=== PATIENT | female | born 1960 | race Caucasian/White ===

== ENCOUNTER 2020-11-21 14:46 | Outpatient (CLI) | payer OTHER, SELFPAY ==
--- NOTE | 2020-11-21 15:08 | ECG_ITS ---
Measurements Intervals [place] Rate: 71 P: 77 [place]: 129 QRS: 76 QRSD: 97 T: 61 QT: 416 QTc: 455 Interpretive Statements SINUS RHYTHM INCOMPLETE RIGHT BUNDLE BRANCH BLOCK BORDERLINE ECG Electronically Signed On 11-21-2020 15:18:19 CDT by Garo Taylor D.O.
[2020-11-21 15:33] LABS: Hematocrit 37.5 % (37.0-47.0); Hemoglobin 12.1 g/dL (12.0-15.0); Mean Corpuscular HGB Conc 32.3 g/dl (32-36); Mean Corpuscular Hemoglobin 31.7 pg (26-34); Mean Corpuscular Volume 98.2 fl (80-100); Mean Platelet Volume 9.6 fl (7.4-10.4); Platelet Count Result 394 k/mm3 (150-375); Red Blood Count 3.82 M/mm3 (4.2-5.4); Red Cell Distribution Width 13.4 % (11.5-14.5); White Blood Count 8.5 K/mm3 (4.5-10.0)
[2020-11-21 15:42] LABS: Alanine Aminotransferase 13 U/L (4-35); Albumin Level 4.1 g/dL (3.5-5.1); Alkaline Phosphatase 82 U/L (38-126); Anion Gap 5 mmol/L (8-16); Aspartate Amino Transferase 29 U/L (14-36); Bilirubin,Total 0.4 mg/dL (0.2-1.3); Blood Urea Nitrogen 14 mg/dL (7-17); Calcium 9.5 mg/dL (8.4-10.2); Carbon Dioxide 29 mmol/L (22-30); Chloride 104 mmol/L (98-107); Estimated Glomerular Filt Rate 51; Glucose 90 mg/dL (65-105); Potassium 4.4 mmol/L (3.4-5.0); Sodium 138 mmol/L (137-145)
== END 2020-11-21 14:47 | disposition home or self-care (01) ==
PROVIDERS: PCP Family Medicine; Visit Provider Family Medicine
DX: I10 Essential (primary) hypertension (principal); Z01.818 Encounter for other preprocedural examination; R53.83 Other fatigue; I45.10 Unspecified right bundle-branch block
CPT/HCPCS: 36415; 80053; 85027; 93005

== ENCOUNTER 2021-03-10 19:36 | Emergency (ER) | payer OTHER, SELFPAY ==
--- NOTE | ~2021-03-10 | CT_ITS ---
EXAMINATION: CT abdomen pelvis wo con DATE: 03/10/2021 23:34 INDICATION: Constipation. TECHNIQUE: Computed tomography (CT) of the abdomen and pelvis was performed without intravenous contr ast. Automated exposure control and iterative reconstruction technique were employed. The dose-length product was 394.16 mGy-cm. COMPARISON: CT abdomen 07/19/2010 FINDINGS: The visualized portions of the lung bases demonstrate mild atelectasis. There is a 5 mm nod ule in right lower lobe, likely benign. No pleural effusion. The heart size is normal. No pericardial effusion. The liver demonstrates surface nodularity. The spleen is normal. There are changes of chol ecystectomy. The pancreas, adrenal glands, and kidneys are normal. There is no urolithiasis. There is diverticulosis of the colon without evidence of diverticulitis. The appendix is not visualized. Ther e are no dilated loops of bowel. There are no pathologically enlarged lymph nodes. There is no free i ntraperitoneal fluid. There are changes of anterior and posterior fusion procedures at L5-S1. There i s mild thoracolumbar spondylosis. IMPRESSION: 1. Liver surface nodularity suspicious for cirrhosis. Reviewed, dictated and finalized at location A.
[2021-03-10 19:46] VITALS: BP 174/72; PULSE 94; RESP 16; TEMP 36; O2SAT 96
[2021-03-10 20:20] LABS: Basophils Absolute Auto 0.1 K/mm3 (0.0-0.1); Basophils Percent Auto 0.6 % (0.2-1.2); Eosinophils Absolute Auto 0.1 K/mm3 (0-0.3); Eosinophils Percent Auto 1.5 % (0-4.4); Hemoglobin 12.3 g/dL (12.0-15.0); Immature Granulocyte Absolute 0.02 K/mm3 (0.00-0.031); Immature Granulocyte Percent A 0.2 % (0-0.5); Lymphocytes Absolute Auto 1.89 K/mm3 (0.9-3.2); Mean Corpuscular HGB Conc 33.2 g/dl (32-36); Mean Corpuscular Hemoglobin 31.5 pg (26-34); Mean Corpuscular Volume 94.9 fl (80-100); Mean Platelet Volume 9.6 fl (7.4-10.4); Monocytes Absolute Auto 0.5 K/mm3 (0.1-0.6); Monocytes Percent Auto 5.9 % (2.6-8.5); Neutrophils Absolute Auto 5.6 K/mm3 (1.3-6.7); Neutrophils Percent Auto 68.8 % (45.5-73.1); Platelet Count Result 381 k/mm3 (150-375); White Blood Count 8.2 K/mm3 (4.5-10.0)
[2021-03-10 20:32] LABS: Alanine Aminotransferase 13 U/L (4-35); Alkaline Phosphatase 92 U/L (38-126); Anion Gap 6 mmol/L (8-16); Aspartate Amino Transferase 27 U/L (14-36); Bilirubin,Total 0.5 mg/dL (0.2-1.3); Blood Urea Nitrogen 4 mg/dL (7-17); Calcium 8.7 mg/dL (8.4-10.2); Carbon Dioxide 30 mmol/L (22-30); Chloride 104 mmol/L (98-107); Estimated CRCL calculation 67 ml/min; Estimated Glomerular Filt Rate > 60; Glucose 114 mg/dL (65-110); Lipase 41 U/L (23-300); Potassium 3.1 mmol/L (3.4-5.0); Sodium 140 mmol/L (137-145)
[2021-03-10 21:58] VITALS: BP 164/73; PULSE 72; RESP 17; O2SAT 99
[2021-03-10 22:11] LABS: Add Urine Microscopic? YES; Appearance Urine Clear (Clear); Bacteria Urine Trace /hpf; Bilirubin Urine Negative (Negative); Blood Urine Negative (Negative); Color Urine Yellow (Yellow); Glucose Urine UA Negative (Negative); Ketones Urine Negative (Negative); Leukocyte Esterase Ur Trace LEU/UL (Negative); Mucus Urine Rare /lpf; Nitrate Urine Negative (Negative); Protein Urine Negative (Negative); RBC Urine 0-2 /hpf (0-2); Specific Grav Ur 1.008 (1.001-1.035); Squamous Epithelial Cell Urine Many /hpf (Few); Urobilinogen Urine Negative mg/dL (<2.0); WBC Urine 0-3 /hpf
[2021-03-10 23:00] VITALS: BP 155/72; PULSE 69; RESP 15; O2SAT 99
--- NOTE | 2021-03-10 23:08 | ED.GENADULT ---
HPI - General Adult General Chief complaint: Abdominal Pain <Nkechi Foley MD - Last Filed: 03/10/21 23:21> Stated complaint: Constipation, abd pain, n/v <Nkechi Foley MD - Last Filed: 03/10/21 23:21> Time Seen by Provider: 03/10/21 21:34 <Nkechi Foley MD - Last Filed: 03/10/21 23:21> Source: patient <Nkechi Foley MD - Last Filed: 03/10/21 23:21> Mode of arrival: ambulatory <Nkechi Foley MD - Last Filed: 03/10/21 23:21> Limitations: no limitations <Nkechi Foley MD - Last Filed: 03/10/21 23:21> History of Present Illness HPI narrative: 61-year-old female with past medical history listed below complaining of 2-week history of feeling like her abdomen is obstructed. Patient states she feels like she is unable to have a bowel movement and is backing causing vomiting. No fever, no hematemesis, no dark tarry stool. No previous history of same. Patient states that recently her right lower extremity was also swollen. Patient states she saw her BUILDING CONSTRUCTION ESTIMATOR 2 days ago and nd told her about her symptoms and her BUILDING CONSTRUCTION ESTIMATOR said she had hemorrhoids and prescribed hemorrhoid medicine but she has not yet had a chance to pick that up. Patient states she is unable to eat anything, she has not eaten for 2 weeks. Patient states pain is located in the rectal area worse with having a bowel movement occasional bright red blood separate from the stool. No fever, last vomited earlier today. Patient states she has had abdominal surgeries including abdominoplasty and cholecystectomy. As for her right lower extremity she said she saw her BUILDING CONSTRUCTION ESTIMATOR who thought it might be vascular. No pain, no paresthesias, no pallor. <Nkechi Foley MD - Last Filed: 03/10/21 23:21> Related Data Home medications: Home Medications Medication Instructions Recorded Confirmed aspirin 81 mg tablet,delayed 81 mg PO DAILY 09/19/19 release fluoxetine 20 mg capsule 20 mg PO DAILY 09/19/19 <Nkechi Foley MD - Last Filed: 03/10/21 23:21> Allergies/adverse reactions: Allergies Allergy/AdvReac Type Severity Reaction Status Date / Time oxycodone Allergy Swelling Verified 11/19/20 16:30 of Lip/Tongue/Throat <Nkechi Foley MD - Last Filed: 03/10/21 23:21> Review of Systems Review of Systems: CONSTITUTIONAL: no fever, no weight loss, no confusion EYES: no vision changes, no eye pain ENT: no rhinorrhea, no sore throat, no difficulty swallowing CARDIOVASCULAR: no chest pain, Right leg edema 2 days ago, not today, no palpitations RESPIRATORY: no cough, no shortness of breath, no hemoptysis GASTROINTESTINAL: positive for abdominal pain, no nausea, positive for vomiting GENITOURINARY: no flank pain, no dysuria, no hematuria SKIN: no rash, no jaundice MUSCULOSKELETAL: no back pain, no trauma. NEUROLOGIC: No headache, no dizziness, no focal weakness PSYCHIATRIC: No hallucinations, no suicidal ideation <Nkechi Foley MD - Last Filed: 03/10/21 23:21> [facility], [facility] Past Medical History Medical History: Medical History (Updated 03/10/21 @ 23:49 by Nkechi Foley MD) Anxiety Arm fracture, left Arthritis DDD (degenerative disc disease) Depression Fibromyalgia GERD (gastroesophageal reflux disease) HTN (hypertension) Hx of bronchitis Osteopenia Tuberculosis <Nkechi Foley MD - Last Filed: 03/10/21 23:21> Surgical History Surgical History: Surgical History History of appendectomy History of tubal ligation Hx of cholecystectomy Hx of tonsillectomy <Nkechi Foley MD - Last Filed: 03/10/21 23:21> Family History Family History: Family History Other Family history of alcoholism Family history of gout Hypertension <Nkechi Foley MD - Last Filed: 03/10/21 23:21> Social History Social History: Social History (Re
--- NOTE | 2021-03-10 23:24 | PC.NURSE ---
Pt to CT scan via stretcher at this time.
[2021-03-11 00:32] VITALS: BP 136/86; PULSE 74; RESP 17; O2SAT 100
== END 2021-03-11 00:45 | disposition home or self-care (01) ==
PROVIDERS: Emergency Medicine; Emergency Provider Emergency Medicine; PCP Family Medicine
DX: K64.4 Residual hemorrhoidal skin tags (principal); R10.31 Right lower quadrant pain; I10 Essential (primary) hypertension; K21.9 Gastro-esophageal reflux disease without esophagitis; M79.7 Fibromyalgia; M85.80 Other specified disorders of bone density and structure, unspecified site; M19.90 Unspecified osteoarthritis, unspecified site; F41.9 Anxiety disorder, unspecified; F32.9 Major depressive disorder, single episode, unspecified; Z79.82 Long term (current) use of aspirin; F17.200 Nicotine dependence, unspecified, uncomplicated
CPT/HCPCS: 36415; 74176; 80053; 81001; 83690; 85025; 99284

== ENCOUNTER 2023-07-11 10:41 | Outpatient (CLI) | payer OTHER, SELFPAY ==
--- NOTE | 2023-07-11 | ECG_ITS ---
Measurements Intervals [place] Rate: 86 P: 83 [place]: 130 QRS: 74 QRSD: 93 T: 124 QT: 360 QTc: 431 Interpretive Statements SINUS RHYTHM INCOMPLETE RIGHT BUNDLE BRANCH BLOCK ST DEVIATION AND T-WAVE ABNORMALITY, CONSIDER ISCHEMIA Electronically Signed On 07-11-2023 12:36:26 [employer] EQUIPMENT OPERATOR by Everett Lamb M.D.
== END 2023-07-11 10:42 | disposition home or self-care (01) ==
PROVIDERS: PCP Family Medicine
DX: Z01.818 Encounter for other preprocedural examination (principal); I45.10 Unspecified right bundle-branch block; R93.1 Abnormal findings on diagnostic imaging of heart and coronary circulation
CPT/HCPCS: 93005

== ENCOUNTER 2023-10-21 08:39 | Outpatient (CLI) | payer OTHER, SELFPAY ==
--- NOTE | ~2023-10-21 | DEXA_ITS ---
Bone Density Report Name: YUNIEL GUTIERREZ Age: 63 Sex: Female Ethnicity: White Date of : 1960 Indication: osteopenia; prior fracture; Referring Provider: FOZIA LEDESMA Study: Bone densitometry was performed. Exam Date: October 21, 2023 Accession number: [id number] Bone Density: Region BMD T-score Z-score Classification AP Spine (L1, L2, L3) 0.769 -2.3 -0.8 Osteopenia Femoral Neck (Left) 0.556 -2.6 -1.3 Osteoporosis Total Hip (Left) 0.649 -2.4 -1.4 Osteopenia Femoral Neck (Right) 0.674 -1.6 -0.2 Osteopenia Total Hip (Right) 0.661 -2.3 -1.3 Osteopenia Total Hip Mean 0.655 -2.4 -1.4 Osteopenia World Health Organization criteria for BMD impression classify patients as: Normal (T-score at or above -1.0), Osteopenia (T-score between -1.0 and -2.5), or Osteoporosis (T-score at or below -2.5). 10-year Fracture Risk: FRAX not reported because: Some T-score for Spine Total or Hip Total or Femoral Neck at or below -2.5 Prior hip or vertebral fracture Previous Exams: Region Exam Age BMD T-score BMD Change BMD Change Date g/cm2 vs Baseline vs Previous AP Spine(L1, L2, L3) 10/21/2023 63 0.769 -2.3 -0.011 -0.083* 03/18/2019 59 0.851 -1.5 0.071* 0.010 11/10/2015 55 0.841 -1.6 0.061* 0.061* 08/27/2013 53 0.780 -2.2 Total Hip(Left) 10/21/2023 63 0.649 -2.4 -0.148* -0.108* 03/18/2019 59 0.756 -1.5 -0.040* -0.028* 11/10/2015 55 0.784 -1.3 -0.012 -0.012 08/27/2013 53 0.796 -1.2 Total Hip(Right) 10/21/2023 63 0.661 -2.3 -0.091* -0.042* 03/18/2019 59 0.703 -2.0 -0.049* -0.037* 11/10/2015 55 0.741 -1.7 -0.012 -0.012 08/27/2013 53 0.752 -1.6 *Denotes significance at 95% confidence level, LSC for AP Spine = 0.022 g/cm2, LSC for Total Hip = 0.027 g/cm2 Clinical Information Provided by Patient: Have had a previous hip or vertebral fracture Has had a low trauma fracture Smokes Has used the following medications: Vitamin D, Calcium Patient maximum height was 62.0 Menopause Age: 52 No regular weight bearing exercise Drinks caffeinated beverages Onset of menses at age 18 Number of children 2 Impression: The patient has established osteoporosis, based on the Left Femoral Neck T-score and the existence of a prior fracture. The patient has risk factors, including:
--- NOTE | ~2023-10-21 | MM_ITS ---
EXAMINATION: MM screening mariia BI w clint HISTORY: Screening mammogram TECHNIQUE: Craniocaudal and mediolateral oblique 3-D tomosynthesis images were obtained and synthetic 2-D images were generated. CAD analysis was submitted and interpreted. COMPARISON: 03/18/2019 bilateral screening mammogram BREAST PARENCHYMAL COMPOSITION: The breasts are almost entirely fatty. FINDINGS: There is no evidence of suspicious mass, calcification, or architectural distortion to sugg est malignancy in either breast. There has been no suspicious interval change. IMPRESSION: 1. No mammographic evidence of malignancy. 2. Recommend routine screening mammography in one year. BI-RADS Category 1: Negative Reviewed, dictated and finalized at location A.
== END 2023-10-21 08:40 ==
PROVIDERS: PCP Obstetrics & Gynecology Gynecology; Visit Provider Obstetrics & Gynecology Gynecology
DX: Z12.31 Encounter for screening mammogram for malignant neoplasm of breast (principal); Z78.0 Asymptomatic menopausal state; M85.88 Other specified disorders of bone density and structure, other site
CPT/HCPCS: 77063; 77067; 77080

== ENCOUNTER 2024-12-02 11:48 | Observation (INO) | payer OTHER, SELFPAY ==
[2024-12-02] VITALS (19 sets, daily range): BP systolic 119–211; BP diastolic 51–109; PULSE 87–105; RESP 13–29; TEMP 36.1–37; O2SAT 98–100
--- NOTE | ~2024-12-02 | US_ITS ---
EXAMINATION: US renal BI DATE: 12/03/2024 16:23 INDICATION: renal mass TECHNIQUE: Multiple grayscale and Doppler ultrasound images of the kidneys were obtained. COMPARISON: CTPA with abdomen and pelvis 12/02/2022. FINDINGS: The right kidney measures 9.5 x 5.2 x 4.4 cm. The left kidney measures 9.7 x 4.5 x 4.0 cm. The kidney s demonstrate normal parenchymal echogenicity. There is no hydronephrosis. The bladder is normal. IMPRESSION: Unremarkable renal sonogram findings. Reviewed, dictated and finalized at location K.
--- NOTE | ~2024-12-02 | CT_ITS ---
CTA chest PE abdomen pel Ordering provider: Patricia Carpenter MD History: . shortness of breath, lung cancer . Comparison: March 10, 2021 Technique: CT angiogram chest was performed following timed intravenous injection of contrast. Thin s lice axial images and reformatted coronal images were obtained. Three dimensional reformatted images of the chest were also obtained using a [employer] workstation. Also, CT of the abdomen and pelvis was pe rformed with IV contrast. . Automated exposure control and iterative reconstruction technique were e mployed. The dose-length product was 844.92 mGy-cm. 100 mL Omnipaque 350 was given IV. FINDINGS: CHEST: --PULMONARY ARTERIES: No pulmonary embolus. --VISUALIZED THORACIC INLET: Normal. --MEDIASTINUM: Aorta/coronary arteries: Mild atheromatous disease. Heart/other: The heart is not enlarged. Lymph nodes: No mediastinal or hilar adenopathy. --LUNGS: Nodule seen in the left lower lobe measuring 6.6 mm. No infiltrates or effusions. No pneumothorax. Ca vitary nodule seen in the right upper lobe measuring 1.4 x 2.2 cm..Three-month follow-up CT is advise d. --MUSCULOSKELETAL: Bones: Age appropriate degenerative changes of the spine. Healing fracture in the right second, third , fourth and seventh ribs is noted. Healing fracture is seen in the left fourth rib. Healing fracture in the sternum body is noted. Superficial soft tissues: The superficial soft tissues are normal. ABDOMEN/PELVIS: --MUSCULOSKELETAL: Superficial soft tissues: The superficial soft tissues are normal. Bones: Age appropriate degenerative changes of the spine. Postoperative changes in the lower lumbar a corin. Bilateral hip osteoarthritic changes. --UPPER ABDOMINAL ORGANS: Liver: Fat infiltration. Gallbladder: Status post cholecystectomy. Spleen: Normal. Stomach/duodenum: Sliding hiatus hernia. Pancreas: Atrophic. Adrenals: Normal. Kidneys: Focal area of decreased enhancement in the left kidney upper pole which may be normal but fo llow-up to exclude a mass is advised. --PELVIC ORGANS: The bladder is normal. No bladder stones. --BOWEL AND MESENTERY: Colon: No evidence of diverticulitis or appendicitis. Small Bowel: Normal. No obstruction. Peritoneum/mesentery: No free air or free fluid. No mesenteric lymphadenopathy. --RETROPERITONEUM: Mild atheromatous disease of the abdominal aorta. No retroperitoneal lymphadenop athy. IMPRESSION: CHEST: 1. No pulmonary embolism. 2. No acute cardiopulmonary pathology. 3. Cavitary lesion in the right upper lobe. Further evaluation advised with PET-CT scan or [address] follow-up. 4. Nodule in the left lower lobe. 6 months follow-up CT is advised. ABDOMEN/PELVIS: 1. No evidence of appendicitis, diverticulitis or intestinal obstruction. 2. Sliding hiatus hernia. 3. Fat infiltration of the liver. 4. Possible focal area of decreased enhancement in the left kidney upper pole. Follow-up advised to exclude a mass lesion. Reviewed, dictated and finalized at location A. IMPRESSION: CHEST: 1. No pulmonary embolism. 2. No acute cardiopulmonary pathology. 3. Cavitary lesion in the right upper lobe. Further evaluation advised with PE T-CT scan or [address] follow-up. 4. Nodule in the left lower lobe. 6 months follow-up CT is advised. ABDOMEN/PELVIS: 1. No evidence of appendicitis, diverticulitis or intestinal obstruction. 2. Sliding hiatus hernia. 3. Fat infiltration of the liver. 4. Possible focal area of decreased enhancement in the left kidney upper pole. Follow-up advised to exclude a mass lesion.
--- NOTE | ~2024-12-02 | XR_ITS ---
EXAMINATION: XR chest 2V DATE: 12/02/2024 15:37 INDICATION: Shortness of breath TECHNIQUE: frontal and lateral views of the chest were obtained. COMPARISON: Chest radiograph dated 04/11/[address] dated 12/02/2024 FINDINGS: Mild linear discoid atelectasis at the lingula. No other airspace opacities, pulmonary edema, pleural effusion or pneumothorax. Heart size is normal. Cholecystectomy clips in the right upper quadrant. IMPRESSION: 1. Mild discoid atelectasis at the lingula. No other acute cardiopulmonary disease. Reviewed, dictated and finalized at location A. IMPRESSION: 1. Mild discoid atelectasis at the lingula. No other acute cardiopulmonary dise ase.
--- NOTE | 2024-12-02 12:04 | ECG_ITS ---
Test Date: 2024-12-02 14:15:06 Measurements Intervals [place] Rate: 88 P: 79 [place]: 153 QRS: 61 QRSD: 96 T: 159 QT: 382 QTc: 462 Interpretive Statements SINUS RHYTHM INCOMPLETE RIGHT BUNDLE BRANCH BLOCK ST DEVIATION AND MODERATE T-WAVE ABNORMALITY, CONSIDER ANTEROLAT/INF ISCHEMIA BASELINE ARTIFACT- I, III, AVR, AVL, AVF, V1 ABNORMAL ECG No previous ECG available for comparison Electronically Signed On 12-02-2024 14:17:19 CDT by Garo Taylor D.O.
--- NOTE | 2024-12-02 12:05 | ED_ITS ---
HPI - General Adult General Chief complaint: Unspecified <Patitojose Ace APRN - Last Filed: 12/02/24 21:27> Stated complaint: dyspnea and n/v <Patito Ace APRN - Last Filed: 12/02/24 21:27> Time Seen by Provider: 12/02/24 14:18 <Patito Ace APRN - Last Filed: 12/02/24 21:27> Focused HPI: Patient is a 64-year-old female who presents to the ER with dyspnea, nausea and vomiting. Her daughter reports her symptoms started yesterday but she is unsure what time. Patient daughter reports she has a history of lung cancer and COPD. She also reports patient is experiencing fair amount of pain. Patient reports she is unable to keep down any p.o. intake and is allergic to Zofran. She denies any abdominal pain, back pain, or recent fevers. Pt denies any alcohol or drug use. GENERAL: Ill-appearing, well-nourished, and in acute distress d/t vomiting. HEAD: Normocephalic, atraumatic. CHEST: + crackles, -wheezing, mild respiratory distress. HEART: Regular rate and rhythm.? NEURO: ?Alert and oriented x3. Patient screened in triage and initial orders placed.? ?Additional care and disposition to be based upon?diagnostic testing and treatment. <Patito Ace APRN - Last Filed: 12/02/24 21:27> History of Present Illness HPI narrative: This is a 64 year old female with history of COPD, lung cancer who presents for evaluation of nausea and vomiting. Patient develop nausea and vomiting yesterday. Today she has been unable to keep anything down. Her family reports emesis was bilious and now it is brown. She developed shortness of breath and abdominal pain today with her vomiting. <Patricia Carpenter MD - Last Filed: 12/02/24 21:54> Related Data Home medications: Home Medications ?Medication ?Instructions ?Recorded ?Confirmed ?Last Taken ?Type aspirin 81 mg tablet,delayed 81 mg PO DAILY 09/19/19 11/19/23 Unknown History release (Adult Low Dose Aspirin) fluoxetine 20 mg capsule 20 mg PO DAILY 09/19/19 11/19/23 Unknown History albuterol 90 mcg/actuation aerosol 90 mcg inhalation PRN shortness of 11/18/24 11/18/24 Unknown History inhaler breath budesonide-formoterol HFA 160 2 inh inhalation Q12H 11/18/24 11/18/24 Unknown History mcg-4.5 mcg/actuation aerosol inhaler (Breyna) ipratropium 0.5 mg-albuterol 3 mg 3 ml inhalation QID PRN shortness 11/18/24 11/18/24 Unknown History (2.5 mg base)/3 mL nebulization of breath soln simvastatin 20 mg tablet 40 mg PO DAILY 11/18/24 11/18/24 Unknown History tiotropium bromide 2.5 2 inh inhalation DAILY 11/18/24 11/18/24 Unknown History mcg/actuation mist for inhalation (Spiriva Respimat) <Patito Ace, INVESTMENT COUNSELOR - Last Filed: 12/02/24 21:27> Allergies/adverse reactions: Allergies Allergy/AdvReac Type Severity Reaction Status Date / Time oxycodone Allergy Swelling Verified 12/02/24 12:02 of Lip/Tongue/Throat ondansetron (From Zofran) AdvReac Intermediate Hives Verified 12/02/24 12:02 <Patito Ace, INVESTMENT COUNSELOR - Last Filed: 12/02/24 21:27> [facility] Past Medical History Medical History: Medical History Abnormal liver CT Abnormal CT of the abdomen Anxiety Depression Arm fracture, left Osteopenia Arthritis Fibromyalgia DDD (degenerative disc disease) GERD (gastroesophageal reflux disease) Tuberculosis Hx of bronchitis HTN (hypertension) <Patito Ace, INVESTMENT COUNSELOR - Last Filed: 12/02/24 21:27> Surgical History Surgical History: Surgical History History of tubal ligation Hx of cholecystectomy History of appendectomy Hx of tonsillectomy <Patito Ace INVESTMENT COUNSELOR - Last Filed: 12/02/24 21:27> Family History Family History: Family History Other Family history of alcoholism Family history of gout Hypertension <Patito Yariel Ace APRN - Last Filed: 12/02/24 21:27> Social History Social History: Social History Second hand tobacco smoke exposure: Yes Alcohol intake: never Substance use: never Substance use type: does not use Gender identity (if verbalized by the patient): Female <Patito Yariel Ace APRN - Last Filed: 12/02/24 21:27> Exam 2 Const: General: cooperative, acute distress (actively vomiting) and ill appearing <Patricia Carpenter MD - Last Filed: 12/02/24 21:54> Nutritional Appearance: obese <Patricia Carpenter MD - Last Filed: 12/02/24 21:54> Orientation/consciousness: patient oriented x3 <Patricia Carpenter MD - Last Filed: 12/02/24 21:54> HENMT: Head: normal to inspection <Patricia Carpenter MD - Last Filed: 12/02/24 21:54> Face and sinus: normal facial exam <Patricia Carpenter MD - Last Filed: 12/02/24 21:54> Chest: Chest palpation & inspection: normal inspection of the chest < Patricia Carpenter MD - Last Filed: 12/02/24 21:54> Resp: Effort & Inspection: normal respiratory effort and able to speak in complete sentences <Patricia Carpenter MD - Last Filed: 12/02/24 21:54> Auscultation: clear to auscultation bilaterally <Patricia Carpenter MD - Last Filed: 12/02/24 21:54> Cardio: Jugular venous distension: no JVD <Patricia Carpenter MD - Last Filed: 12/02/24 21:54> Rate: regular rate <Patricia Carpenter MD - Last Filed: 12/02/24 21:54> Rhythm: regular rhythm <Patricia Carpenter MD - Last Filed: 12/02/24 21:54> Peripheral pulses: Peripheral pulses 2+ throughout <Patricia Carpenter MD - Last Filed: 12/02/24 21:54> GI: GI Palp: Yes Soft to palpation, No Tenderness to palpation present (GI) and No Guarding due to palpation present (GI) <Patricia Carpenter MD - Last Filed: 12/02/24 21:54> Auscultation: Hypoactive bowel sounds present <Patricia Carpenter MD - Last Filed: 12/02/24 21:54> Skin: General skin exam: normal color <Patricia Carpenter MD - Last Filed: 12/02/24 21:54> Neuro: General: patient oriented x3 <Patricia Carpenter MD - Last Filed: 12/02/24 21:54> Course Reevaluation(s) Reevaluation #1: Patient reports her abdomen still hurts but her vomiting is under control. I discussed with patient and daughter that labs are consistent with dehydration. I also reviewed that CT shows right upper and left side nodule. Patient reports her oncologist is watching those. She would like to be admitted for observation. <Patricia Carpenter MD - Last Filed: 12/02/24 21:54> Date: 12/02/24 <Patricia Carpenter MD - Last Filed: 12/02/24 21:54> Time: 16:59 <Patricia Carpenter MD - Last Filed: 12/02/24 21:54> Reevaluation #2: Patient is awaiting hospitalist to call back to discussion admission. Care turned over to Dr. Weems until admission to hospitalist. <Patricia Carpenter MD - Last Filed: 12/02/24 21:54> Date: 12/02/24 <Patricia Carpenter MD - Last Filed: 12/02/24 21:54> Time: 18:00 <Patricia Carpenter MD - Last Filed: 12/02/24 21:54> Vital Signs Vital signs: Vital Signs Pulse Rate 87 12/02/24 11:57 Respiratory Rate 20 12/02/24 11:57 Blood Pressure 167/109 H 12/02/24 11:57 Pulse Oximetry 100 12/02/24 11:57 Oxygen Delivery Room Air 12/02/24 11:57 Temperature 98.4 F 12/02/24 20:09 Pulse Rate 96 12/02/24 20:09 Respiratory Rate 17 12/02/24 20:09 Blood Pressure 119/51 L 12/02/24 20:09 Pulse Oximetry 98 12/02/24 20:09 Oxygen Delivery Room Air 12/02/24 11:57 <Patito Ace APRN - Last Filed: 12/02/24 21:27> Vital Signs Pulse Rate 87 12/02/24 11:57 Respiratory Rate 20 12/02/24 11:57 Blood Pressure 167/109 H 12/02/24 11:57 Pulse Oximetry 100 12/02/24 11:57 Oxygen Delivery Room Air 12/02/24 11:57 Temperature 98.4 F 12/02/24 20:09 Pulse Rate 96 12/02/24 20:09 Respiratory Rate 17 12/02/24 20:09 Blood Pressure 119/51 L 12/02/24 20:09 Pulse Oximetry 98 12/02/24 20:09 Oxygen Delivery Room Air 12/02/24 11:57 <Patricia Carpenter MD - Last Filed: 12/02/24 21:54> Vital Signs Pulse Rate 87 12/02/24 11:57 Respiratory Rate 20 12/02/24 11:57 Blood Pressure 167/109 H 12/02/24 11:57 Pulse Oximetry 100 12/02/24 11:57 Oxygen Delivery Room Air 12/02/24 11:57 Temperature 98.4 F 12/02/24 20:09 Pulse Rate 96 12/02/24 20:09 Respiratory Rate 17 12/02/24 20:09 Blood Pressure 119/51 L 12/02/24 20:09 Pulse Oximetry 98 12/02/24 20:09 Oxygen Delivery Room Air 12/02/24 11:57 <Jaylyn Weems MD - Last Filed: 12/02/24 18:59> Medical Decision Making MDM Narrative Medical decision making narrative: Patient seen following discharge. Care assumed at 1800. Patient noted to be hypertensive, when rechecked, improved 187/90. Pt did not take her Losartan today due to n/v, thus IV hydralazine given. Patient imaging reviewed. UA reviewed not consistent with infection. Additional phenergan and morphine ordered for patient. Blood cultures were ordered, and IV fluids continued. Suspect ABBY is pre renal, no infectious source identified at this point. Discussed with hospitalist, admitted in stable condition. <Jaylyn Weems MD - Last Filed: 12/02/24 18:59> Differential Diagnosis Differential Diagnosis: SBO, dehydration, PE, pneumonia. CHF, [place], angina, sepsis, UTI <Patricia Carpenter MD - Last Filed: 12/02/24 21:54> Medical Records Medical records reviewed: Yes I reviewed the external patient's medical records. <Patricia Carpenter MD - Last Filed: 12/02/24 21:54> Vital Signs Vital Signs: Vital Signs Pulse Rate 87 12/02/24 11:57 Respiratory Rate 12/02/24 11:57 Blood Pressure 167/109 H 12/02/24 11:57 Pulse Oximetry 100 12/02/24 11:57 Oxygen Delivery Room Air 12/02/24 11:57 Temperature 98.4 F 12/02/24 20:09 Pulse Rate 96 12/02/24 20:09 Respiratory Rate 17 12/02/24 20:09 Blood Pressure 119/51 L 12/02/24 20:09 Pulse Oximetry 98 12/02/24 20:09 Oxygen Delivery Room Air 12/02/24 11:57 <Patito Ace, INVESTMENT COUNSELOR - Last Filed: 12/02/24 21:27> Vital Signs Pulse Rate 87 12/02/24 11:57 Respiratory Rate 12/02/24 11:57 Blood Pressure 167/109 H 12/02/24 11:57 Pulse Oximetry 100 12/02/24 11:57 Oxygen Delivery Room Air 12/02/24 11:57 Temperature 98.4 F 12/02/24 20:09 Pulse Rate 96 12/02/24 20:09 Respiratory Rate 17 12/02/24 20:09 Blood Pressure 119/51 L 12/02/24 20:09 Pulse Oximetry 98 12/02/24 20:09 Oxygen Delivery Room Air 12/02/24 11:57 <Patricia Carpenter MD - Last Filed: 12/02/24 21:54> Vital Signs Pulse Rate 87 12/02/24 11:57 Respiratory Rate 20 12/02/24 11:57 Blood Pressure 167/109 H 12/02/24 11:57 Pulse Oximetry 100 12/02/24 11:57 Oxygen Delivery Room Air 12/02/24 11:57 Temperature 98.4 F 12/02/24 20:09 Pulse Rate 96 12/02/24 20:09 Respiratory Rate 17 12/02/24 20:09 Blood Pressure 119/51 L 12/02/24 20:09 Pulse Oximetry 98 12/02/24 20:09 Oxygen Delivery Room Air 12/02/24 11:57 <Jaylyn Weems MD - Last Filed: 12/02/24 18:59> Lab Data Lab results reviewed: Yes I reviewed the patient's lab results. <Jaylyn Weems MD - Last Filed: 12/02/24 18:59> Result diagrams: 12/02/24 14:26 12/02/24 14:26 <Patito Ace APRN - Last Filed: 12/02/24 21:27> Labs: Lab Results 12/02/24 12/02/24 12/02/24 Range/Units 14:26 16:49 17:35 WBC 15.9 H (4.5-10.0) K/mm3 RBC 4.41 (4.2-5.4) M/mm3 Hgb 13.5 (12.0-15.0) g/dL Hct 41.7 (37.0-47.0) % MCV 94.6 (80-100) fl MCH 30.6 (26-34) pg MCHC 32.4 (32-36) g/dl RDW 14.4 (11.5-14.5) % Plt Count 439 H (150-375) k/mm3 MPV 9.4 (7.4-10.4) fl Immature Gran % (Auto) 0.5 (0-0.5) % Neut % (Auto) 92.1 H (45.5-73.1) % Lymph % (Auto) 4.5 L (18.3-44.2) % [place] % (Auto) 2.6 (2.6-8.5) % Eos % (Auto) 0.0 (0-4.4) % Baso % (Auto) 0.3 (0.2-1.2) % Lymph # (Auto) 0.71 L (0.9-3.2) K/mm3 [place] # (Auto) 0.4 (0.1-0.6) K/mm3 Eos # (Auto) 0.0 (0-0.3) K/mm3 Baso # (Auto) 0.0 (0.0-0.1) K/mm3 Abs Immat Gran (auto) 0.08 H (0.00-0.031) K/mm3 Absolute Neuts (auto) 14.6 H (1.3-6.7) K/mm3 Absolute Nucleated RBC 0.000 (0.0-0.012) K/mm3 Nucleated RBC % 0.0 (0.0-0.2) % PT 14.0 (11.1-14.7) Seconds INR 1.1 APTT 27.9 (22.3-36.8) Seconds Sodium 140 (137-145) mmol/L Potassium 4.3 (3.4-5.0) mmol/L Chloride 108 H (98-107) mmol/L Carbon Dioxide 14 L (22-30) mmol/L Anion Gap 18 H (4-12) mmol/L BUN 17 D (7-17) mg/dL Creatinine 1.62 H (0.7-1.0) mg/dL Estim Creat Clear Calc 29 ml/min Estimated GFR 32 L (59 - ) Glucose 199 H (65-110) mg/dL Lactic Acid 2.8 H (0.7-2.0) mmol/L Calcium 9.7 (8.4-10.2) mg/dL Magnesium 2.0 (1.6-2.3) mg/dL Total Bilirubin 0.6 (0.2-1.3) mg/dL AST 48 H (14-36) U/L ALT 24 (6-35) U/L Alkaline Phosphatase 166 H (38-126) U/L Troponin I < 0.012 (0.000-0.034) ng/mL NT-Pro-B Natriuret Pep 1900 H (19.9-100) pg/mL Total Protein 9.4 H (6.3-8.2) g/dL Albumin 4.7 (3.5-5.1) g/dL Lipase 60 (23-300) U/L Urine Color Yellow (Yellow) Urine Appearance Clear (Clear) Urine pH 7.0 (5.0-9.0) Ur Specific [place] 1.040 H (1.001-1.035) Urine Protein 3+ H (Negative) mg/dL Urine Glucose (UA) 3+ H (Negative) mg/dL Urine Ketones 2+ H (Negative) mg/dL Ur Blood (Man) 1+ H (Negative) Urine Nitrate Negative (Negative) Urine Bilirubin Negative (Negative) Urine Urobilinogen 0.2 (<2.0) mg/dL Leukocyte Esterase Rfl Negative (Negative) BERYL/UL Urine RBC 0-2 (0-2) /hpf Urine WBC 0-5 (0-3) /hpf Ur Squamous Epith Cells None seen (Few) /hpf Urine Bacteria None seen /hpf Urine Casts 0-2 Urine Opiates Screen Negative (Negative) Urine Methadone Screen Negative (Negative) Ur Barbiturates Screen Negative (Negative) Ur Phencyclidine Scrn Negative (Negative) Ur Amphetamine Screen Negative (Negative) U Benzodiazepines Scrn Negative (Negative) Urine Cocaine Screen Negative (Negative) U Cannabinoids Screen Negative (Negative) <Patito Ace, INVESTMENT COUNSELOR - Last Filed: 12/02/24 21:27> Lab Results 12/02/24 12/02/24 12/02/24 Range/Units 14:26 16:49 17:35 WBC 15.9 H (4.5-10.0) K/mm3 RBC 4.41 (4.2-5.4) M/mm3 Hgb 13.5 (12.0-15.0) g/dL Hct 41.7 (37.0-47.0) % MCV 94.6 (80-100) fl MCH 30.6 (26-34) pg MCHC 32.4 (32-36) g/dl RDW 14.4 (11.5-14.5) % Plt Count 439 H (150-375) k/mm3 MPV 9.4 (7.4-10.4) fl Immature Gran % (Auto) 0.5 (0-0.5) % Neut % (Auto) 92.1 H (45.5-73.1) % Lymph % (Auto) 4.5 L (18.3-44.2) % [place] % (Auto) 2.6 (2.6-8.5) % Eos % (Auto) 0.0 (0-4.4) % Baso % (Auto) 0.3 (0.2-1.2) % Lymph # (Auto) 0.71 L (0.9-3.2) K/mm3 [place] # (Auto) 0.4 (0.1-0.6) K/mm3 Eos # (Auto) 0.0 (0-0.3) K/mm3 Baso # (Auto) 0.0 (0.0-0.1) K/mm3 Abs Immat Gran (auto) 0.08 H (0.00-0.031) K/mm3 Absolute Neuts (auto) 14.6 H (1.3-6.7) K/mm3 Absolute Nucleated RBC 0.000 (0.0-0.012) K/mm3 Nucleated RBC % 0.0 (0.0-0.2) % PT 14.0 (11.1-14.7) Seconds INR 1.1 APTT 27.9 (22.3-36.8) Seconds Sodium 140 (137-145) mmol/L Potassium 4.3 (3.4-5.0) mmol/L Chloride 108 H (98-107) mmol/L Carbon Dioxide 14 L (22-30) mmol/L Anion Gap 18 H (4-12) mmol/L BUN 17 D (7-17) mg/dL Creatinine 1.62 H (0.7-1.0) mg/dL Estim Creat Clear Calc 29 ml/min Estimated GFR 32 L (59 - ) Glucose 199 H (65-110) mg/dL Lactic Acid 2.8 H (0.7-2.0) mmol/L Calcium 9.7 (8.4-10.2) mg/dL Magnesium 2.0 (1.6-2.3) mg/dL Total Bilirubin 0.6 (0.2-1.3) mg/dL AST 48 H (14-36) U/L ALT 24 (6-35) U/L Alkaline Phosphatase 166 H (38-126) U/L Troponin I < 0.012 (0.000-0.034) ng/mL NT-Pro-B Natriuret Pep 1900 H (19.9-100) pg/mL Total Protein 9.4 H (6.3-8.2) g/dL Albumin 4.7 (3.5-5.1) g/dL Lipase 60 (23-300) U/L Urine Color Yellow (Yellow) Urine Appearance Clear (Clear) Urine pH 7.0 (5.0-9.0) Ur Specific [place] 1.040 H (1.001-1.035) Urine Protein 3+ H (Negative) mg/dL Urine Glucose (UA) 3+ H (Negative) mg/dL Urine Ketones 2+ H (Negative) mg/dL Ur Blood (Man) 1+ H (Negative) Urine Nitrate Negative (Negative) Urine Bilirubin Negative (Negative) Urine Urobilinogen 0.2 (<2.0) mg/dL Leukocyte Esterase Rfl Negative (Negative) BERYL/UL Urine RBC 0-2 (0-2) /hpf Urine WBC 0-5 (0-3) /hpf Ur Squamous Epith Cells None seen (Few) /hpf Urine Bacteria None seen /hpf Urine Casts 0-2 Urine Opiates Screen Negative (Negative) Urine Methadone Screen Negative (Negative) Ur Barbiturates Screen Negative (Negative) Ur Phencyclidine Scrn Negative (Negative) Ur Amphetamine Screen Negative (Negative) U Benzodiazepines Scrn Negative (Negative) Urine Cocaine Screen Negative (Negative) U Cannabinoids Screen Negative (Negative) <Patricia Carpenter MD - Last Filed: 12/02/24 21:54> Lab Results 12/02/24 12/02/24 12/02/24 Range/Units 14:26 16:49 17:35 WBC 15.9 H (4.5-10.0) K/mm3 RBC 4.41 (4.2-5.4) M/mm3 Hgb 13.5 (12.0-15.0) g/dL Hct 41.7 (37.0-47.0) % MCV 94.6 (80-100) fl MCH 30.6 (26-34) pg MCHC 32.4 (32-36) g/dl RDW 14.4 (11.5-14.5) % Plt Count 439 H (150-375) k/mm3 MPV 9.4 (7.4-10.4) fl Immature Gran % (Auto) 0.5 (0-0.5) % Neut % (Auto) 92.1 H (45.5-73.1) % Lymph % (Auto) 4.5 L (18.3-44.2) % [place] % (Auto) 2.6 (2.6-8.5) % Eos % (Auto) 0.0 (0-4.4) % Baso % (Auto) 0.3 (0.2-1.2) % Lymph # (Auto) 0.71 L (0.9-3.2) K/mm3 [place] # (Auto) 0.4 (0.1-0.6) K/mm3 Eos # (Auto) 0.0 (0-0.3) K/mm3 Baso # (Auto) 0.0 (0.0-0.1) K/mm3 Abs Immat Gran (auto) 0.08 H (0.00-0.031) K/mm3 Absolute Neuts (auto) 14.6 H (1.3-6.7) K/mm3 Absolute Nucleated RBC 0.000 (0.0-0.012) K/mm3 Nucleated RBC % 0.0 (0.0-0.2) % PT 14.0 (11.1-14.7) Seconds INR 1.1 APTT 27.9 (22.3-36.8) Seconds Sodium 140 (137-145) mmol/L Potassium 4.3 (3.4-5.0) mmol/L Chloride 108 H (98-107) mmol/L Carbon Dioxide 14 L (22-30) mmol/L Anion Gap 18 H (4-12) mmol/L BUN 17 D (7-17) mg/dL Creatinine 1.62 H (0.7-1.0) mg/dL Estim Creat Clear Calc 29 ml/min Estimated GFR 32 L (59 - ) Glucose 199 H (65-110) mg/dL Lactic Acid 2.8 H (0.7-2.0) mmol/L Calcium 9.7 (8.4-10.2) mg/dL Magnesium 2.0 (1.6-2.3) mg/dL Total Bilirubin 0.6 (0.2-1.3) mg/dL AST 48 H (14-36) U/L ALT 24 (6-35) U/L Alkaline Phosphatase 166 H (38-126) U/L Troponin I < 0.012 (0.000-0.034) ng/mL NT-Pro-B Natriuret Pep 1900 H (19.9-100) pg/mL Total Protein 9.4 H (6.3-8.2) g/dL Albumin 4.7 (3.5-5.1) g/dL Lipase 60 (23-300) U/L Urine Color Yellow (Yellow) Urine Appearance Clear (Clear) Urine pH 7.0 (5.0-9.0) Ur Specific [place] 1.040 H (1.001-1.035) Urine Protein 3+ H (Negative) mg/dL Urine Glucose (UA) 3+ H (Negative) mg/dL Urine Ketones 2+ H (Negative) mg/dL Ur Blood (Man) 1+ H (Negative) Urine Nitrate Negative (Negative) Urine Bilirubin Negative (Negative) Urine Urobilinogen 0.2 (<2.0) mg/dL Leukocyte Esterase Rfl Negative (Negative) BERYL/UL Urine RBC 0-2 (0-2) /hpf Urine WBC 0-5 (0-3) /hpf Ur Squamous Epith Cells None seen (Few) /hpf Urine Bacteria None seen /hpf Urine Casts 0-2 Urine Opiates Screen Negative (Negative) Urine Methadone Screen Negative (Negative) Ur Barbiturates Screen Negative (Negative) Ur Phencyclidine Scrn Negative (Negative) Ur Amphetamine Screen Negative (Negative) U Benzodiazepines Scrn Negative (Negative) Urine Cocaine Screen Negative (Negative) U Cannabinoids Screen Negative (Negative) <Jaylyn Weems MD - Last Filed: 12/02/24 18:59> ABG Data ABG results: 12/02/24 15:52 VBG pH 7.398 VBG pCO2 26.7 L* VBG pO2 < 27.0 L VBG HCO3 16.1 L O2 Delivery Device Room air O2 Liters/Min Not Reportable FiO2 21 <Patito Ace, INVESTMENT COUNSELOR - Last Filed: 12/02/24 21:27> 12/02/24 15:52 VBG pH 7.398 VBG pCO2 26.7 L* VBG pO2 < 27.0 L VBG HCO3 16.1 L O2 Delivery Device Room air O2 Liters/Min Not Reportable FiO2 21 <Patricia Carpenter MD - Last Filed: 12/02/24 21:54> 12/02/24 15:52 VBG pH 7.398 VBG pCO2 26.7 L* VBG pO2 < 27.0 L VBG HCO3 16.1 L O2 Delivery Device Room air O2 Liters/Min Not Reportable FiO2 21 <Jaylyn Weems MD - Last Filed: 12/02/24 18:59> Imaging Data Radiologist's impression: ITS Impressions Chest X-Ray 12/02/24 15:43 IMPRESSION: 1. Mild discoid atelectasis at the lingula. No other acute cardiopulmonary disease. Chest/Abdomen/Pelvis CTA 12/02/24 15:51 IMPRESSION: CHEST: 1. No pulmonary embolism. 2. No acute cardiopulmonary pathology. 3. Cavitary lesion in the right upper lobe. Further evaluation advised with PET-CT scan or [address] follow-up. 4. Nodule in the left lower lobe. 6 months follow-up CT is advised. ABDOMEN/PELVIS: 1. No evidence of appendicitis, diverticulitis or intestinal obstruction. 2. Sliding hiatus hernia. 3. Fat infiltration of the liver. 4. Possible focal area of decreased enhancement in the left kidney upper pole. Follow-up advised to exclude a mass lesion. <Patricia Carpenter MD - Last Filed: 12/02/24 21:54> ECG Data EKG #1: Attestation: I personally reviewed and interpreted this ECG as follows: <Patricia Carpenter MD - Last Filed: 12/02/24 21:54> ECG completion date: 12/02/24 <Patricia Carpenter MD - Last Filed: 12/02/24 21:54> ECG completion time: 14:15 <Patricia Carpenter MD - Last Filed: 12/02/24 21:54> EKG Interpretation: normal rate, sinus rhythm (88), ST depression and NL axis <Patricia Carpenter MD - Last Filed: 12/02/24 21:54> Critical Care Time Critical Care Time Critical Care Time: Yes <Jaylyn Weems MD - Last Filed: 12/02/24 18:59> Total Critical Care Time: 35 <Jaylyn Weems MD - Last Filed: 12/02/24 18:59> Discharge Plan Discharge Clinical Impression: ABBY (acute kidney injury), Intractable epigastric abdominal pain, Nausea & vomiting <Patito Ace APRN - Last Filed: 12/02/24 21:27> Patient Disposition: Still a Patient <Patito Ace APRN - Last Filed: 12/02/24 21:27> Condition: Guarded Prognosis <Patito Ace, INVESTMENT COUNSELOR - Last Filed: 12/02/24 21:27>
[2024-12-02] MEDS: PROMETHAZINE HCL 25 MG/ML AMPUL IM (14:32)
[2024-12-02 14:33] LABS: Basophils Percent Auto 0.3 % (0.2-1.2); Hematocrit 41.7 % (37.0-47.0); Hemoglobin 13.5 g/dL (12.0-15.0); Immature Granulocyte Absolute 0.08 K/mm3 (0.00-0.031); Immature Granulocyte Percent A 0.5 % (0-0.5); Lymphocytes Absolute Auto 0.71 K/mm3 (0.9-3.2); Lymphocytes Percent Auto 4.5 % (18.3-44.2); Mean Corpuscular HGB Conc 32.4 g/dl (32-36); Mean Corpuscular Hemoglobin 30.6 pg (26-34); Mean Corpuscular Volume 94.6 fl (80-100); Mean Platelet Volume 9.4 fl (7.4-10.4); Monocytes Absolute Auto 0.4 K/mm3 (0.1-0.6); Monocytes Percent Auto 2.6 % (2.6-8.5); Neutrophils Absolute Auto 14.6 K/mm3 (1.3-6.7); Neutrophils Percent Auto 92.1 % (45.5-73.1); Platelet Count Result 439 k/mm3 (150-375); Red Blood Count 4.41 M/mm3 (4.2-5.4); Red Cell Distribution Width 14.4 % (11.5-14.5); White Blood Count 15.9 K/mm3 (4.5-10.0)
[2024-12-02] MEDS: IPRATROPIUM 0.5 MG/ALBUTEROL SULFATE 2.5 MG AMPUL.NEB 3 ML INHALATION (14:50)
[2024-12-02 15:08] LABS: Alanine Aminotransferase 24 U/L (6-35); Albumin Level 4.7 g/dL (3.5-5.1); Alkaline Phosphatase 166 U/L (38-126); Anion Gap 18 mmol/L (4-12); Aspartate Amino Transferase 48 U/L (14-36); Bilirubin,Total 0.6 mg/dL (0.2-1.3); Blood Urea Nitrogen 17 mg/dL (7-17); Calcium 9.7 mg/dL (8.4-10.2); Carbon Dioxide 14 mmol/L (22-30); Chloride 108 mmol/L (98-107); Estimated CRCL calculation 29 ml/min; Estimated Glomerular Filt Rate 32; Glucose 199 mg/dL (65-110); Potassium 4.3 mmol/L (3.4-5.0); Sodium 140 mmol/L (137-145); Total Protein 9.4 g/dL (6.3-8.2)
[2024-12-02 15:10] LABS: Lipase 60 U/L (23-300)
[2024-12-02 15:20] LABS: NT Pro B Type Natriuretic Pept 1900 pg/mL (19.9-100); Troponin I < 0.012 ng/mL (0.000-0.034)
[2024-12-02] MEDS: LACTATED RINGERS 1,000 ML 999 ML IV CONT ×2 (15:45→18:17)
[2024-12-02] MEDS: FAMOTIDINE 20 MG/2 ML VIAL IV PUSH ×2 (15:45→21:17)
[2024-12-02 15:55] LABS: Fractional Inspired Oxygen 21 %; HCO3 VBG 16.1 mEq/l (24.0-30.0); pH VBG 7.398 (7.300-7.400)
[2024-12-02 15:58] LABS: Device ROOM AIR; PCO2 VBG 26.7 mmHg (42.0-48.0); PO2 VBG < 27.0 mmHg (35.0-45.0)
[2024-12-02] MEDS: MORPHINE SULFATE (*CRX) 4 MG/ML INJ IV PUSH ×2 (16:03→20:03)
[2024-12-02 16:59] LABS: Add Urine Microscopic? YES; Appearance Urine Clear (Clear); Bacteria Urine None Seen /hpf; Bilirubin Urine Negative (Negative); Blood Urine 1+ (Negative); Color Urine Yellow (Yellow); Glucose Urine UA 3+ mg/dL (Negative); Ketones Urine 2+ mg/dL (Negative); Leukocyte Esterase Ur Negative LEU/UL (Negative); Nitrate Urine Negative (Negative); Non Pathogenic Casts 0-2; Protein Urine 3+ mg/dL (Negative); RBC Urine 0-2 /hpf (0-2); Squamous Epithelial Cell Urine None Seen /hpf (Few); Urobilinogen Urine 0.2 mg/dL (<2.0); WBC Urine 0-5 /hpf (0-3)
[2024-12-02 17:10] LABS: Amphetamine Screen Urine Negative (Negative); Barbiturate Screen Urine Negative (Negative); Benzodiazepines Screen Urine Negative (Negative); Cannabinoid Screen Urine Negative (Negative); Cocaine Screen Urine Negative (Negative); Methadone Screen Urine Negative (Negative); Opiate Screen Urine Negative (Negative); Phencyclidine Screen Urine Negative (Negative)
[2024-12-02 17:57] LABS: Lactic Acid Reflex 2.8 mmol/L (0.7-2.0)
[2024-12-02 18:03] LABS: INR 1.1
[2024-12-02 18:04] LABS: Partial Thromboplastin Time 27.9 Seconds (22.3-36.8)
--- NOTE | 2024-12-02 18:36 | P.HP_ITS ---
<Statement entered by Rosalind Snell APRN - 12/02/24 23:23> This documentation has been reviewed and approved. H&P: HPI History of Present Illness Date/Time: 12/02/24 18:36 Chief Complaint: nausea vomiting Narrative: 66-year-old female with a PMHx: Anxiety, depression, osteopenia fibromyalgia GERD HTN, tuberculosis. read reported to the emergency room with complaints of starting to feel tired and sick yesterday morning around 10:00 a.m. subsequently the patient began experiencing persistent vomiting which continued throughout the day her symptoms for 1 day, patient reported her ongoing nausea vomiting was making it significantly difficult to breathe and she was unable to vomit further due to the absence of stomach contents leading to gagging. Patient reports she also experienced severe stomach pain. Pertinent negatives include no history of sore throat chest pain or SOB reported by patient. ED Work-up reveals: Initial b/p: 211/91, respiration 22, heart rate 102, SpO2 98% on RA, WBC 15.9, elevated chloride 108, creatinine 1.62, GFR 32, BNP 1900, urine positive for 3+ protein, ketones, urine glucose 3, urine drug screen negative, SEE CTA report. Review of Systems Review of Systems: All systems reviewed & are unremarkable except as noted in HPI and below PMFSH Past Medical History Medical History Abnormal liver CT Abnormal CT of the abdomen Anxiety Depression Arm fracture, left Osteopenia Arthritis Fibromyalgia DDD (degenerative disc disease) GERD (gastroesophageal reflux disease) Tuberculosis Hx of bronchitis HTN (hypertension) Surgical History Surgical History History of tubal ligation Hx of cholecystectomy History of appendectomy Hx of tonsillectomy Family History Family History Other Family history of alcoholism Family history of gout Hypertension Social History Social History Second hand tobacco smoke exposure: Yes Alcohol intake: never Substance use: never Substance use type: does not use Gender identity (if verbalized by the patient): Female Meds Home Medications and Allergies Home Medications ?Medication ?Instructions ?Recorded ?Confirmed ?Type ibuprofen 600 mg tablet (IBU) 600 mg PO Q6H PRN pain #20 tabs 05/17/19 11/19/23 Rx fluoxetine 20 mg capsule 20 mg PO DAILY 09/19/19 11/19/23 History albuterol 90 mcg/actuation aerosol 90 mcg inhalation PRN shortness of 11/18/24 11/18/24 History inhaler breath budesonide-formoterol HFA 160 2 inh inhalation Q12H 11/18/24 11/18/24 History mcg-4.5 mcg/actuation aerosol inhaler (Breyna) ipratropium 0.5 mg-albuterol 3 mg 3 ml inhalation QID PRN shortness 11/18/24 11/18/24 History (2.5 mg base)/3 mL nebulization of breath soln simvastatin 20 mg tablet 40 mg PO DAILY 11/18/24 11/18/24 History tiotropium bromide 2.5 2 inh inhalation DAILY 11/18/24 11/18/24 History mcg/actuation mist for inhalation (Spiriva Respimat) gabapentin 300 mg capsule 300 mg PO TID 12/02/24 12/02/24 History losartan 50 mg tablet (Cozaar) 40 mg PO DAILY 12/02/24 12/02/24 History omeprazole 40 mg capsule,delayed 80 mg PO DAILY 12/02/24 12/02/24 History release potassium chloride 10 mEq 10 meq PO DAILY PRN hypokalemia 12/02/24 12/02/24 History tablet,extended release Allergies Allergy/AdvReac Type Severity Reaction Status Date / Time Egg Derived Allergy Intermediate stomach Verified 12/02/24 22:36 ache oxycodone Allergy Swelling Verified 12/02/24 22:36 of Lip/Tongue/Throat ondansetron (From Zofran) AdvReac Intermediate Hives Verified 12/02/24 22:36 Vital Signs Vital Signs - 24 hr 12/02/24 11:57 12/02/24 14:07 12/02/24 14:15 Temperature Pulse Rate 87 90 91 Respiratory Rate 20 29 H 19 Blood Pressure 167/109 H Pulse Oximetry 100 100 Oxygen Delivery Room Air 12/02/24 14:16 12/02/24 14:30 12/02/24 14:31 Temperature Pulse Rate 92 90 90 Respiratory Rate 23 H 17 20 Blood Pressure 194/99 H 207/85 H Pulse Oximetry Oxygen Delivery 12/02/24 14:43 12/02/24 14:45 12/02/24 14:50 Temperature Pulse Rate 92 92 96 Respiratory Rate 14 17 18 Blood Pressure 166/96 H Pulse Oximetry Oxygen Delivery 12/02/24 15:00 12/02/24 15:15 12/02/24 15:51 Temperature Pulse Rate 96 98 104 H Respiratory Rate 16 20 21 H Blood Pressure Pulse Oximetry Oxygen Delivery 12/02/24 16:00 12/02/24 16:20 12/02/24 16:30 Temperature 98.6 F Pulse Rate 105 H 103 H 102 H Respiratory Rate 23 H 14 13 Blood Pressure Pulse Oximetry 98 Oxygen Delivery 12/02/24 17:33 Temperature Pulse Rate 102 H Respiratory Rate 22 H Blood Pressure 211/91 H Pulse Oximetry 98 Oxygen Delivery Exam Narrative: General: A well-developed, nontoxic-appearing, female lying in bed. arouses easily HEENT: PERRL, EOMI. Oral mucosa moist. Neck: Supple. No midline cervical tenderness. Respiratory: Respirations are non- labored and lungs are clear to auscultation bilaterally. Cardiovascular: Regular rate and rhythm with S1-S2. Gastrointestinal: Abdomen is soft, non-tender, and non-distended with positive bowel sounds. Skin: Warm and dry. No rash or lesions on limited exam. Extremities: No cyanosis, clubbing, or edema. Radial and pedal pulses intact. Neurological: Alert and oriented. Cranial nerves 2-12 are grossly intact. No gross focal deficits to casual conversation. Psychiatric: Pleasant and cooperative with normal mood and affect. Judgment and insight intact. H&P: Results Labs Labs: Short CBC 12/02/24 Range/Units 14:26 WBC 15.9 H (4.5-10.0) K/mm3 Hgb 13.5 (12.0-15.0) g/dL Hct 41.7 (37.0-47.0) % Plt Count 439 H (150-375) k/mm3 [facility] 12/02/24 14:26 Sodium 140 Potassium 4.3 Chloride 108 H Carbon Dioxide 14 L BUN 17 D Creatinine 1.62 H Glucose 199 H Calcium 9.7 Cardiac Enzymes 12/02/24 Range/Units 14:26 Troponin I < 0.012 (0.000-0.034) ng/mL Liver Function 12/02/24 Range/Units 14:26 Total Bilirubin 0.6 (0.2-1.3) mg/dL AST 48 H (14-36) U/L ALT 24 (6-35) U/L Alkaline Phosphatase 166 H (38-126) U/L Albumin 4.7 (3.5-5.1) g/dL Urine 12/02/24 Range/Units 16:49 Urine Color Yellow (Yellow) Urine Appearance Clear (Clear) Urine pH 7.0 (5.0-9.0) Ur Specific [place] 1.040 H (1.001-1.035) Urine Protein 3+ H (Negative) mg/dL Urine Glucose (UA) 3+ H (Negative) mg/dL ECG Interpretation: Test Date: 2024-12-02 14:15:06 Measurements Intervals Brooks Rate: 88 P: 79 ND: 153 QRS: 61 QRSD: 96 T: 159 QT: 382 QTc: 462 Interpretive Statements SINUS RHYTHM INCOMPLETE RIGHT BUNDLE BRANCH BLOCK ST DEVIATION AND MODERATE T-WAVE ABNORMALITY, CONSIDER ANTEROLAT/INF ISCHEMIA BASELINE ARTIFACT- I, III, AVR, AVL, AVF, V1 ABNORMAL ECG No previous ECG available for comparison Electronically Signed On 12-02-2024 14:17:19 CDT by Garo Taylor D.O. Imaging CT scan - abdomen: Radiologist's impression: IMPRESSION: CHEST: 1. No pulmonary embolism. 2. No acute cardiopulmonary pathology. 3. Cavitary lesion in the right upper lobe. Further evaluation advised with PET-CT scan or [address] follow-up. 4. Nodule in the left lower lobe. 6 months follow-up CT is advised. ABDOMEN/PELVIS: 1. No evidence of appendicitis, diverticulitis or intestinal obstruction. 2. Sliding hiatus hernia. 3. Fat infiltration of the liver. 4. Possible focal area of decreased enhancement in the left kidney upper pole. Follow-up advised to exclude a mass lesion. Chest x-ray: Radiologist's impression: 1. Mild discoid atelectasis at the lingula. No other acute cardiopulmonary disease. Assessment and Plan Assessment and plan (1) HTN (hypertension): Code(s): I10 - Essential (primary) hypertension Status: Acute (2) Anxiety: Code(s): F41.9 - Anxiety disorder, unspecified Status: Acute (3) Osteopenia: Code(s): M85.80 - Other specified disorders of bone density and structure, unspecified site Status: Acute (4) GERD (gastroesophageal reflux disease): Code(s): K21.9 - Gastro-esophageal reflux disease without esophagitis Status: Acute (5) Cavitary lesion of lung: Code(s): J98.4 - Other disorders of lung Status: Acute Assessment and Plan: as evidence by chest abdomen pelvis CTA 12/02/2024 -Further evaluation advised with PET-CT scan or [address] follow-up. -may consider pulmonary consult during admission (6) Hiatus hernia syndrome: Code(s): K44.9 - Diaphragmatic hernia without obstruction or gangrene Status: Acute (7) Nodule of lower lobe of left lung: Code(s): R91.1 - Solitary pulmonary nodule Status: Acute Assessment and Plan: Nodule in the left lower lobe. 6 months follow-up CT is advised. (8) Fatty liver: Code(s): K76.0 - Fatty (change of) liver, not elsewhere classified Status: Acute Assessment and Plan: -continue follow up with GI (9) Left kidney mass: Code(s): N28.89 - Other specified disorders of kidney and ureter Status: Acute Assessment and Plan: as evidence by CTA abdomen pelvis CTA Possible focal area of decreased enhancement in the left kidney upper pole - order renal ultrasound -Consider consult Nephrology during admission (10) ABBY (acute kidney injury): Code(s): N17.9 - Acute kidney failure, unspecified Status: Acute Assessment and Plan: -Elevated creatinine levels could be due to dehydration from persistent vomiting and lack of fluid intake verses elevated white blood count suggesting possible infection or inflammation -Blood cultures pending -continue monitor /record I&O -Continue fluid resuscitation -recheck BMP in a.m. Plan Continue home medications: VTE Prophylaxis: DIET: heart healthy Anticipated hospital stay: > 2 days Code Status: full code Hospitalist MIPS Advance Care Plan I have confirmed that the patient's Advanced Care Plan is present, code status is documented, or surrogate decision maker is listed in patient medical record.: Yes Medication Reconciliation I have utilized all available resources to obtain, update and review the patients current medications (includes all prescriptions, OTC, herbals, cannabis, and nutritional supplements).: Yes
[2024-12-02 19:44] LABS: Reflex Lactic Acid Yes or No Add Lactic
[2024-12-02] MEDS: hydrALAZINE HCL 20 MG/ML VIAL 10 MG IV PUSH (20:04)
[2024-12-02] MEDS: LACTATED RINGERS 1,000 ML 125 ML IV CONT (21:18)
[2024-12-02 22:59] LABS: Lactic Acid 2.6 mmol/L (0.7-2.0)
[2024-12-03] VITALS (9 sets, daily range): BP systolic 115–134; BP diastolic 52–69; PULSE 87–99; RESP 16–20; TEMP 36.1–36.6; O2SAT 95–100; BMI 29.3
[2024-12-03] MEDS: MORPHINE SULFATE (*CRX) 4 MG/ML INJ IV PUSH (00:45)
[2024-12-03] MEDS: PROMETHAZINE HCL 25 MG/ML AMPUL 12.5 MG IV PUSH (00:46)
--- NOTE | 2024-12-03 05:01 | ADMGEN ---
This patient, Bertha Tolbert, was admitted to 3 [facility] Surg Room 307-01. Patient/family oriented to hospital policies and general routines including ID bracelet, bed and alarms, visiting hours, pain management, procedures, bathroom and other care routines, personal items, smoking policy, room service/diet, and visiting hours. Information on how to activate the Rapid Response Team has been discussed. Patient/Family are encouraged to report perceived risks to care and to ask questions if they do not understand what they are told or what they should do. *Admission intake was filled partialy because the pt felt sick and was unable to answer the rest of the questions. Please, complete in the day whenever she feels better. Thank you
[2024-12-03 06:47] LABS: Basophils Percent Auto 0.3 % (0.2-1.2); Eosinophils Percent Auto 0.2 % (0-4.4); Hematocrit 30.7 % (37.0-47.0); Hemoglobin 9.7 g/dL (12.0-15.0); Immature Granulocyte Absolute 0.61 K/mm3 (0.00-0.031); Immature Granulocyte Percent A 5.8 % (0-0.5); Lymphocytes Absolute Auto 1.35 K/mm3 (0.9-3.2); Lymphocytes Percent Auto 12.9 % (18.3-44.2); Mean Corpuscular HGB Conc 31.6 g/dl (32-36); Mean Corpuscular Hemoglobin 30.6 pg (26-34); Mean Corpuscular Volume 96.8 fl (80-100); Mean Platelet Volume 9.4 fl (7.4-10.4); Monocytes Absolute Auto 0.8 K/mm3 (0.1-0.6); Neutrophils Absolute Auto 7.6 K/mm3 (1.3-6.7); Neutrophils Percent Auto 72.8 % (45.5-73.1); Platelet Count Result 322 k/mm3 (150-375); Red Blood Count 3.17 M/mm3 (4.2-5.4); Red Cell Distribution Width 14.7 % (11.5-14.5); White Blood Count 10.4 K/mm3 (4.5-10.0)
[2024-12-03 06:56] LABS: Alanine Aminotransferase 16 U/L (6-35); Albumin Level 3.4 g/dL (3.5-5.1); Alkaline Phosphatase 106 U/L (38-126); Anion Gap 6 mmol/L (4-12); Aspartate Amino Transferase 37 U/L (14-36); Bilirubin,Total 0.2 mg/dL (0.2-1.3); Blood Urea Nitrogen 15 mg/dL (7-17); Calcium 8.7 mg/dL (8.4-10.2); Carbon Dioxide 22 mmol/L (22-30); Chloride 110 mmol/L (98-107); Estimated CRCL calculation 33 ml/min; Estimated Glomerular Filt Rate 37; Glucose 89 mg/dL (65-110); Potassium 3.2 mmol/L (3.4-5.0); Sodium 138 mmol/L (137-145); Total Protein 6.4 g/dL (6.3-8.2)
[2024-12-03] MEDS: UMECLIDINIUM BROMIDE 62.5 MCG ELLIPTA 1 PUFF INHALATION (07:31)
[2024-12-03] MEDS: FLUTICASONE/SALMETEROL 115-21 MCG INHALER 1 PUFF 2 PUFF INHALATION (07:31)
[2024-12-03 07:49] LABS: Hemoglobin A1C. 5.3 % (<5.7)
[2024-12-03] MEDS: LOSARTAN POTASSIUM 50 MG TABLET PO (10:00)
[2024-12-03] MEDS: FLUoxetine HCL 10 MG CAPSULE 30 MG PO (10:00)
[2024-12-03] MEDS: FAMOTIDINE 20 MG/2 ML VIAL IV PUSH ×2 (10:00→21:09)
[2024-12-03] MEDS: GABAPENTIN 300 MG CAPSULE PO ×3 (10:00→16:49)
[2024-12-03] MEDS: PANTOPRAZOLE 40 MG TABLET PO ×2 (10:00→16:49)
[2024-12-03] MEDS: SIMVASTATIN 20 MG TABLET 40 MG PO (10:00)
[2024-12-03 11:41] LABS: Procalcitonin. 0.1 ng/mL
[2024-12-03] MEDS: LACTATED RINGERS 1,000 ML 125 ML IV CONT ×2 (11:59→21:18)
--- NOTE | 2024-12-03 12:19 | PM.IMPN ---
Progress Note: A&P Assessment and Plan (1) HTN (hypertension): Code(s): I10 - Essential (primary) hypertension Status: Acute (2) Anxiety: Code(s): F41.9 - Anxiety disorder, unspecified Status: Acute (3) Osteopenia: Code(s): M85.80 - Other specified disorders of bone density and structure, unspecified site Status: Acute (4) GERD (gastroesophageal reflux disease): Code(s): K21.9 - Gastro-esophageal reflux disease without esophagitis Status: Acute (5) Cavitary lesion of lung: Code(s): J98.4 - Other disorders of lung Status: Acute Assessment and Plan: as evidence by chest abdomen pelvis CTA 12/02/2024 -Further evaluation advised with PET-CT scan or [address] follow-up. Blood and sputum cultures, MRSA Started on LEvaquin and Pulm consulted (6) Hiatus hernia syndrome: Code(s): K44.9 - Diaphragmatic hernia without obstruction or gangrene Status: Acute (7) Nodule of lower lobe of left lung: Code(s): R91.1 - Solitary pulmonary nodule Status: Acute Assessment and Plan: Nodule in the left lower lobe. 6 months follow-up CT is advised. (8) Fatty liver: Code(s): K76.0 - Fatty (change of) liver, not elsewhere classified Status: Acute Assessment and Plan: -continue follow up with GI (9) Left kidney mass: Code(s): N28.89 - Other specified disorders of kidney and ureter Status: Acute Assessment and Plan: as evidence by CTA abdomen pelvis CTA Possible focal area of decreased enhancement in the left kidney upper pole - order renal ultrasound MRI contingent on US findings (10) ABBY (acute kidney injury): Code(s): N17.9 - Acute kidney failure, unspecified Status: Acute Assessment and Plan: -Elevated creatinine levels could be due to dehydration from persistent vomiting Cr1.44 from 1.62, baseline Continue IVF continue monitoring Plan Continue home medications: VTE Prophylaxis: Sq lovenox Code Status: full code Subjective Date/time seen: 12/03/24 12:19 Interval history: Comfortable at bedside still retching and complained of abd pain at bedside Review of Systems Review of Systems: All systems reviewed & are unremarkable except as noted in HPI and below Exam Narrative: General: A well-developed, nontoxic-appearing, female lying in bed. arouses easily HEENT: PERRL, EOMI. Oral mucosa moist. Neck: Supple. No midline cervical tenderness. Respiratory: Respirations are non- labored and lungs are clear to auscultation bilaterally. Cardiovascular: Regular rate and rhythm with S1-S2. Gastrointestinal: Abdomen is soft, periumbilical tenderness, and non-distended with positive bowel sounds. Skin: Warm and dry. No rash or lesions on limited exam. Extremities: No cyanosis, clubbing, or edema. Radial and pedal pulses intact. Neurological: Alert and oriented. Cranial nerves 2-12 are grossly intact. No gross focal deficits to casual conversation. Psychiatric: Pleasant and cooperative with normal mood and affect. Judgment and insight intact. Objective Data Vital Signs Vital Signs: Vital Signs - 24 hr 12/02/24 14:07 12/02/24 14:15 12/02/24 14:16 Temperature Pulse Rate 90 91 92 Respiratory Rate 29 H 19 23 H Blood Pressure 194/99 H Pulse Oximetry 100 Oxygen Delivery 12/02/24 14:30 12/02/24 14:31 12/02/24 14:43 Temperature Pulse Rate 90 90 92 Respiratory Rate 17 20 14 Blood Pressure 207/85 H 166/96 H Pulse Oximetry Oxygen Delivery 12/02/24 14:45 12/02/24 14:50 12/02/24 15:00 Temperature Pulse Rate 92 96 96 Respiratory Rate 17 18 16 Blood Pressure Pulse Oximetry Oxygen Delivery 12/02/24 15:15 12/02/24 15:51 12/02/24 16:00 Temperature Pulse Rate 98 104 H 105 H Respiratory Rate 20 21 H 23 H Blood Pressure Pulse Oximetry Oxygen Delivery 12/02/24 16:20 12/02/24 16:30 12/02/24 17:33 Temperature 98.6 F Pulse Rate 103 H 102 H 102 H Respiratory Rate 14 13 22 H Blood Pressure 211/91 H Pulse Oximetry 98 98 Oxygen Delivery 12/02/24 18:45 12/02/24 20:00 12/02/24 20:09 Temperature 97.0 F L 98.4 F Pulse Rate 99 99 96 Respiratory Rate 14 20 17 Blood Pressure 172/79 H 135/65 119/51 L Pulse Oximetry 99 100 98 Oxygen Delivery 12/03/24 00:00 12/03/24 00:30 12/03/24 04:00 Temperature 97.7 F 97.7 F Pulse Rate 99 94 Respiratory Rate 20 16 Blood Pressure 115/65 134/69 Pulse Oximetry 99 99 Oxygen Delivery Room Air 12/03/24 06:00 12/03/24 07:34 Temperature 97.7 F Pulse Rate 94 Respiratory Rate 16 Blood Pressure 134/69 Pulse Oximetry 99 97 Oxygen Delivery Room Air Intake/Output Intake/Output: Intake & Output 11/30/24 12/01/24 12/02/24 12/03/24 23:59 23:59 23:59 23:59 Intake Total 1999 999 Output Total 0 Balance 1999 1000 Meds/Results Medications: Active Medications Generic Name Dose Route Start Last Admin Trade Name Freq PRN Reason Stop Dose Admin Albuterol 2 puff 12/03/24 00:10 Albuterol Sulfate (*Sp) Aerosol 1 Puff INHALATION Q6H PRN Shortness Of Breath Or Wheezing Dicyclomine HCl 20 mg 12/02/24 18:52 Dicyclomine Hcl Inj 20 Mg/2 Ml Vial IM Q6H PRN Abdominal Cramping Famotidine 20 mg 12/02/24 21:00 12/03/24 10:00 Famotidine 20 Mg/2 Ml Vial IV PUSH 20 mg Q12HR ROXY Administration Fluoxetine HCl 30 mg 12/03/24 09:00 12/03/24 10:00 Fluoxetine Hcl 10 Mg Capsule PO 30 mg QAM ROXY Administration Gabapentin 300 mg 12/03/24 09:00 12/03/24 11:58 Gabapentin 300 Mg Capsule PO 300 mg TID ROXY Administration Lactated Ringer's 1,000 mls @ 125 mls/hr 12/02/24 18:55 12/03/24 11:59 Lr - Lactated Ringers Iv IV CONT 125 mls/hr .Q8H ROXY Administration Ibuprofen 600 mg 12/02/24 23:39 Ibuprofen 600 Mg Tablet PO Q6H PRN Pain Rated 4-6 Losartan Potassium 50 mg 12/03/24 09:00 12/03/24 10:00 Losartan Potassium 50 Mg Tablet PO 50 mg DAILY ROXY Administration Morphine Sulfate 4 mg 12/02/24 18:52 12/03/24 00:45 Morphine Sulfate (*Crx) 4 Mg/Ml Inj IV PUSH 4 mg Q2H PRN Administration Pain Rated 7-10 Pantoprazole Sodium 40 mg 12/03/24 09:00 12/03/24 10:00 Pantoprazole 40 Mg Tablet PO 40 mg BID ROXY Administration Potassium Chloride 10 meq 12/02/24 23:39 Potassium Chloride 10 Meq Er Tablet PO DAILY PRN hypokalemia Promethazine HCl 12.5 mg 12/02/24 18:52 12/03/24 00:46 Promethazine Hcl 25 Mg/Ml Ampul IV PUSH 12.5 mg Q6H PRN Administration Nausea Fluticasone/Salmeterol 2 puff 12/03/24 08:00 12/03/24 07:31 Fluticasone/Salmeterol 115-21 Mcg Inhaler 1 Puff INHALATION 2 puff Q12HRT ROXY Administration Simvastatin 40 mg 12/03/24 09:00 12/03/24 10:00 Simvastatin 20 Mg Tablet PO 40 mg DAILY ROXY Administration Umeclidinium [place] 1 puff 12/03/24 08:00 12/03/24 07:31 Umeclidinium [place] 62.5 Mcg Ellipta INHALATION 1 puff DAILYRT ROXY Administration Radiology Results: ITS Impressions Chest X-Ray 12/02/24 15:43 IMPRESSION: 1. Mild discoid atelectasis at the lingula. No other acute cardiopulmonary disease. Chest/Abdomen/Pelvis CTA 12/02/24 15:51 IMPRESSION: CHEST: 1. No pulmonary embolism. 2. No acute cardiopulmonary pathology. 3. Cavitary lesion in the right upper lobe. Further evaluation advised with PET-CT scan or [address] follow-up. 4. Nodule in the left lower lobe. 6 months follow-up CT is advised. ABDOMEN/PELVIS: 1. No evidence of appendicitis, diverticulitis or intestinal obstruction. 2. Sliding hiatus hernia. 3. Fat infiltration of the liver. 4. Possible focal area of decreased enhancement in the left kidney upper pole. Follow-up advised to exclude a mass lesion. Labs Labs: Laboratory Results - last 24 hr 12/02/24 12/02/24 12/02/24 14:26 15:52 16:49 WBC 15.9 H RBC 4.41 Hgb 13.5 Hct 41.7 MCV 94.6 MCH 30.6 MCHC 32.4 RDW 14.4 Plt Count 439 H MPV 9.4 Immature Gran % (Auto) 0.5 Neut % (Auto) 92.1 H Lymph % (Auto) 4.5 L [place] % (Auto) 2.6 Eos % (Auto) 0.0 Baso % (Auto) 0.3 Lymph # (Auto) 0.71 L [place] # (Auto) 0.4 Eos # (Auto) 0.0 Baso # (Auto) 0.0 Abs Immat Gran (auto) 0.08 H Absolute Neuts (auto) 14.6 H Absolute Nucleated RBC 0.000 Nucleated RBC % 0.0 PT INR APTT VBG pH 7.398 VBG pCO2 26.7 L* VBG pO2 < 27.0 L VBG HCO3 16.1 L O2 Delivery Device Room air O2 Liters/Min Not Reportable FiO2 21 Sodium 140 Potassium 4.3 Chloride 108 H Carbon Dioxide 14 L Anion Gap 18 H BUN 17 D Creatinine 1.62 H Estim Creat Clear Calc 29 Estimated GFR 32 L Glucose 199 H Hemoglobin A1c Lactic Acid Calcium 9.7 Magnesium 2.0 Total Bilirubin 0.6 AST 48 H ALT 24 Alkaline Phosphatase 166 H Troponin I < 0.012 NT-Pro-B Natriuret Pep 1900 H Total Protein 9.4 H Albumin 4.7 Lipase 60 Procalcitonin Urine Color Yellow Urine Appearance Clear Urine pH 7.0 Ur Specific [place] 1.040 H Urine Protein 3+ H Urine Glucose (UA) 3+ H Urine Ketones 2+ H Ur Blood (Man) 1+ H Urine Nitrate Negative Urine Bilirubin Negative Urine Urobilinogen 0.2 Leukocyte Esterase Rfl Negative Urine RBC 0-2 Urine WBC 0-5 Ur Squamous Epith Cells None seen Urine Bacteria None seen Urine Casts 0-2 Urine Opiates Screen Negative Urine Methadone Screen Negative Ur Barbiturates Screen Negative Ur Phencyclidine Scrn Negative Ur Amphetamine Screen Negative U Benzodiazepines Scrn Negative Urine Cocaine Screen Negative U Cannabinoids Screen Negative 12/02/24 12/02/24 12/03/24 17:35 22:43 06:07 WBC 10.4 H RBC 3.17 L Hgb 9.7 L D Hct 30.7 L MCV 96.8 MCH 30.6 MCHC 31.6 L RDW 14.7 H Plt Count 322 MPV 9.4 Immature Gran % (Auto) 5.8 H Neut % (Auto) 72.8 Lymph % (Auto) 12.9 L [place] % (Auto) 8.0 Eos % (Auto) 0.2 Baso % (Auto) 0.3 Lymph # (Auto) 1.35 [place] # (Auto) 0.8 H Eos # (Auto) 0.0 Baso # (Auto) 0.0 Abs Immat Gran (auto) 0.61 H Absolute Neuts (auto) 7.6 H Absolute Nucleated RBC 0.000 Nucleated RBC % 0.0 PT 14.0 INR 1.1 APTT 27.9 VBG pH VBG pCO2 VBG pO2 VBG HCO3 O2 Delivery Device O2 Liters/Min FiO2 Sodium 138 Potassium 3.2 L Chloride 110 H Carbon Dioxide 22 Anion Gap 6 BUN 15 Creatinine 1.44 H Estim Creat Clear Calc 33 Estimated GFR 37 L Glucose 89 Hemoglobin A1c 5.3 Lactic Acid 2.8 H 2.6 H Calcium 8.7 Magnesium Total Bilirubin 0.2 AST 37 H ALT 16 Alkaline Phosphatase 106 Troponin I NT-Pro-B Natriuret Pep Total Protein 6.4 Albumin 3.4 L Lipase Procalcitonin 0.1 Urine Color Urine Appearance Urine pH Ur Specific [place] Urine Protein Urine Glucose (UA) Urine Ketones Ur Blood (Man) Urine Nitrate Urine Bilirubin Urine Urobilinogen Leukocyte Esterase Rfl Urine RBC Urine WBC Ur Squamous Epith Cells Urine Bacteria Urine Casts Urine Opiates Screen Urine Methadone Screen Ur Barbiturates Screen Ur Phencyclidine Scrn Ur Amphetamine Screen U Benzodiazepines Scrn Urine Cocaine Screen U Cannabinoids Screen
--- NOTE | 2024-12-03 12:48 | PM.CNPUL ---
Assessment and Plan Assessment and plan (1) Lung cancer, upper lobe: Code(s): C34.10 - Malignant neoplasm of upper lobe, unspecified bronchus or lung Status: Acute Assessment and Plan: Regarding her right upper lobe lung cancer the patient was diagnosed by bronchoscopy by Dr. Rubio at an outside facility on 03/31/2024. She follows up with Dr. Rubio and Dr. Kelsey, radiation oncology. I was able to review last office visit note from 11/09/[address] Kelsey: this said the patient has cT2, cN0, cM0 non-small cell lung cancer of the right upper lobe. Status post 5 treatments of radiation therapy completed 08/05/2024. Patient was able to pull up a CT scan report from 11/02/2024 that was in comparison to a CT PET from 07/05/2024. The report stated a cavitary nodule seen in the right upper lobe that abuts the fissure measuring 2.1 x 1.2 cm and previously measured 3.4 x 2.0 cm. The amount of soft tissue component has also significantly decreased compared with prior. There is 0.5 cm nodule in the left lower lobe abutting the pleura. This CT report was not back at the time of her office visit note but Dr. Kelsey's office called her and told her that the cancer had decreased in size and that the plan was to follow-up with them on 02/08/[address] scan. Patient sees boatbuilder wood Dr. Rubio and he has done PFTs and told her that she has COPD. She is maintained on Symbicort and Spiriva. She is prescribed rescue albuterol rescue DuoNebs. She is scheduled to see Dr. Valle on 01/19/2025. 12/02/2024: CT scan of the chest shows cavitary nodule measuring 1.4 x 2.2 cm. Plan: Patient is currently followed at an outside facility and I recommended she take the current CD with her to her doctor's so that they can make a direct comparison between the 11/02/2024 and 12/02/2024 scans. Given the small changes of 1 to 2 mm in the dimensions, it is important to have the same radiologist measure at the same time on the same monitors to determine if there is a true change. Patient should follow-up with her radiation oncologist on 02/08/2025 and with her boatbuilder wood on 01/19/2025. Discussed with Dr. Power, will sign off, call with questions. (2) COPD (chronic obstructive pulmonary disease): Code(s): J44.9 - Chronic obstructive pulmonary disease, unspecified Status: Acute Assessment and Plan: Regarding her COPD, at baseline patient can walk a quarter of a block. One year ago she could walk the same distance. She denies chronic cough, she does have phlegm the kit stuck in her throat and denies hemoptysis. Patient smoked tobacco from age 16 to 2 days ago at an average of a pack and half a day for a total of 72 pack years. She is currently trying to cut back and smokes 18 cigarettes a day. She is exposed to secondhand smoke from both parents and currently lives with a smoker. 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 she is maintained on Symbicort, Spiriva Respimat and rescue albuterol inhaler and nebulizer. 12/03/2024: Patient states her respiratory status is at her baseline. She is on room air with saturations 97%. She is having no wheezing. There is no evidence of pneumonia, bronchitis, tracheobronchitis or COPD exacerbation. Plan: I will place the patient on her equipment home inhalers and I prescribed Advair 230-21 at 1 puff q.12 hours, Incruse Ellipta 1 puff q.day, albuterol 2 puffs Q 4 hours p.r.n. shortness of breath or wheezing. She does not need antibiotics from a pulmonary perspective. History of Present Illness History of Present Illness Consult date: 12/03/24 Chief complaint: Dehydration, intractable nausea/vomiting Narrative: 12/03/2024: This is a new pulmonary consult for right upper lobe cavity. 64-year-old with a high history of hypertension, fibromyalgia, depression, COPD, right upper lobe lung cancer. Regarding her right upper lobe lung cancer the patient was diagnosed by bronchoscopy by Dr. Rubio at an outside facility on 03/31/2024. She follows up with Dr. Rubio and Dr. Kelsey, radiation oncology. I was able to review last office visit note from 11/09/[address] Kelsey: this said the patient has cT2, cN0, cM0 non-small cell lung cancer of the right upper lobe. Status post 5 treatments of radiation therapy completed 08/05/2024. Patient was able to pull up a CT scan report from 11/02/2024 that was in comparison to a CT PET from 07/05/2024. The report stated a cavitary nodule seen in the right upper lobe that abuts the fissure measuring 2.1 x 1.2 cm and previously measured 3.4 x 2.0 cm. The amount of soft tissue component has also significantly decreased compared with prior. There is 0.5 cm nodule in the left lower lobe abutting the pleura. This CT report was not back at the time of her office visit note but Dr. Kelsey's office called her and told her that the cancer had decreased in size and that the plan was to follow-up with them on 02/08/[address] scan. Patient sees Dr. Rubio and he has done PFTs and told her that she has COPD. She is maintained on Symbicort and Spiriva. She is prescribed rescue albuterol rescue DuoNebs. She is scheduled to see Dr. Valle on 01/19/2025. Regarding her COPD, at baseline patient can walk a quarter of a block. One year ago she could walk the same distance. She denies chronic cough, she does have phlegm the kit stuck in her throat and denies hemoptysis. Patient smoked tobacco from age 16 to 2 days ago at an average of a pack and half a day for a total of 72 pack years. She is currently trying to cut back and smokes 18 cigarettes a day. She is exposed to secondhand smoke from both parents and currently lives with a smoker. 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 Patient was in her usual state of health on 11/30/2024. She woke up on 12/01/2024 and felt tired, sleepy and nauseous. She began to vomit and vomited every 2 hours throughout the day and the night. On 12/02 she woke up she had some increased shortness of breath but continued to have nausea and vomiting which made the shortness of breath worse. She denies any choking episodes or aspiration of vomit. She presented to the ER on 12/02/2024 with a blood pressure 167/109, heart rate 87, respirations 20, room air saturations 100. White blood cell count 15.9, creatinine 1.62, lactic acid 2.8, BNP 1900, VBG on room air 7.40/27/ less than 27. Patient had a CTA of the chest abdomen pelvis which showed no pulmonary embolism. There is a cavitary nodule in the right upper lobe measuring 2.2 x 1.4 cm. There is a nodule seen in the left lower lobe measuring 6.6 mm. No evidence of appendicitis, diverticulitis or intestinal obstruction. There is a sliding hiatal hernia, fatty infiltration of the liver possible focal area of decreased enhancement left kidney upper pole follow-up advised to exclude a mass lesion. Patient was treated with Phenergan, Pepcid, morphine, lactated Ringer's, Bentyl, Motrin and bronchodilators. 12/03/2024: Currently patient tells me that she is breathing back at her baseline. She denies fever, cough, chills, rigors, phlegm production. She still has nausea but has not vomited since 8:00 p.m. last night. She is afebrile. Room air saturation 99%. White blood cell count 10.4, creatinine 1.44 her weight is 70.5. DATA: CTA chest PE abdomen pel Ordering provider: Patricia Carpenter MD History: . shortness of breath, lung cancer . Comparison: March 10, 2021 Technique: CT angiogram chest was performed following timed intravenous injection of contrast. Thin slice axial images and reformatted coronal images were obtained. Three dimensional reformatted images of the chest were also obtained using a [employer] workstation. Also, CT of the abdomen and pelvis was performed with IV contrast. . Automated exposure control and iterative reconstruction technique were employed. The dose-length product was 844.92 mGy-cm. 100 mL Omnipaque 350 was given IV. FINDINGS: CHEST: --PULMONARY ARTERIES: No pulmonary embolus. --VISUALIZED THORACIC INLET: Normal. --MEDIASTINUM: Aorta/coronary arteries: Mild atheromatous disease. Heart/other: The heart is not enlarged. Lymph nodes: No mediastinal or hilar adenopathy. --LUNGS: Nodule seen in the left lower lobe measuring 6.6 mm. No infiltrates or effusions. No pneumothorax. Cavitary nodule seen in the right upper lobe measuring 1.4 x 2.2 cm..Three-month follow-up CT is advised. --MUSCULOSKELETAL: Bones: Age appropriate degenerative changes of the spine. Healing fracture in the right second, third, fourth and seventh ribs is noted. Healing fracture is seen in the left fourth rib. Healing fracture in the sternum body is noted. Superficial soft tissues: The superficial soft tissues are normal. ABDOMEN/PELVIS: --MUSCULOSKELETAL: Superficial soft tissues: The superficial soft tissues are normal. Bones: Age appropriate degenerative changes of the spine. Postoperative changes in the lower lumbar area. Bilateral hip osteoarthritic changes. --UPPER ABDOMINAL ORGANS: Liver: Fat infiltration. Gallbladder: Status post cholecystectomy. Spleen: Normal. Stomach/duodenum: Sliding hiatus hernia. Pancreas: Atrophic. Adrenals: Normal. Kidneys: Focal area of decreased enhancement in the left kidney upper pole which may be normal but follow-up to exclude a mass is advised. --PELVIC ORGANS: The bladder is normal. No bladder stones. --BOWEL AND MESENTERY: Colon: No evidence of diverticulitis or appendicitis. Small Bowel: Normal. No obstruction. Peritoneum/mesentery: No free air or free fluid. No mesenteric lymphadenopathy. --RETROPERITONEUM: Mild atheromatous disease of the abdominal aorta. No retroperitoneal lymphadenopathy. IMPRESSION: CHEST: 1. No pulmonary embolism. 2. No acute cardiopulmonary pathology. 3. Cavitary lesion in the right upper lobe. Further evaluation advised with PET-CT scan or [address] follow-up. 4. Nodule in the left lower lobe. 6 months follow-up CT is advised. ABDOMEN/PELVIS: 1. No evidence of appendicitis, diverticulitis or intestinal obstruction. 2. Sliding hiatus hernia. 3. Fat infiltration of the liver. 4. Possible focal area of decreased enhancement in the left kidney upper pole. Follow-up advised to exclude a mass lesion. 11/02/2024: CT scan report from outside hospital: The report stated a cavitary nodule seen in the right upper lobe that abuts the fissure measuring 2.1 x 1.2 cm and previously measured 3.4 x 2.0 cm. The amount of soft tissue component has also significantly decreased compared with prior. There is 0.5 cm nodule in the left lower lobe abutting the pleura. Review of Systems Constitutional: Constitutional: Reports no additional constitutional complaints Eyes: Eyes: Reports no additional eye complaints ENT: Reports system reviewed and no additional complaints, except as documented Cardiovascular: Cardiovascular: Reports no additional cardiovascular complaints Respiratory: Respiratory: Reports no additional respiratory complaints Gastrointestinal: Gastrointestinal: Reports no additional gastrointestinal complaints Musculoskeletal: Musculoskeletal: Reports no additional musculoskeletal complaints Neurologic: Reports system reviewed and no additional complaints, except as documented Psychiatric: Psychiatric: Reports no additional psychiatric complaints Endocrine: Endocrine: Reports no additional endocrine complaints Hematologic/Lymphatic: Hematologic/Lymphatic: Reports no additional hematologic/lymphatic complaints Allergic/Immunologic: Allergic/Immunologic: Reports no additional allergic/immunologic complaints [facility] Past Medical History Medical History Abnormal liver CT Abnormal CT of the abdomen Anxiety Depression Arm fracture, left Osteopenia Arthritis Fibromyalgia DDD (degenerative disc disease) GERD (gastroesophageal reflux disease) Tuberculosis Hx of bronchitis HTN (hypertension) Surgical History Surgical History History of tubal ligation Hx of cholecystectomy History of appendectomy Hx of tonsillectomy Family History Family History Other Family history of alcoholism Family history of gout Hypertension Social History Social History Smoking packs per day: 1 Smoking cigarettes per day: 20.0 Years smoked: 40 Smoking pack-years: 40.00 Smoking status: Current every day smoker Tobacco type: cigarettes Second hand tobacco smoke exposure: Yes Alcohol intake: never Substance use: never Substance use type: does not use Do You Feel Safe in your Home?: Yes Lack of Transportation: No Lack of Food: Sometimes True Current Housing: I Have Housing Concerned About Future Housing: No Difficulty Paying Gas/Electric Bills: No Difficulty Paying for Meds: No Currently Unemployed: No Education: High School Diploma/GED Difficulty w/ Childcare or Family Care: No Gender identity (if verbalized by the patient): Female Spiritual care concerns: No Meds Home Medications and Allergies Home Medications ?Medication ?Instructions ?Recorded ?Confirmed ?Type ibuprofen 600 mg tablet (IBU) 600 mg PO Q6H PRN pain #20 tabs 05/17/19 12/02/24 Rx fluoxetine 20 mg capsule 30 mg PO DAILY 09/19/19 12/02/24 History albuterol 90 mcg/actuation aerosol 90 mcg inhalation PRN shortness of 11/18/24 12/02/24 History inhaler breath budesonide-formoterol HFA 160 2 inh inhalation Q12H 11/18/24 12/02/24 History mcg-4.5 mcg/actuation aerosol inhaler (Breyna) ipratropium 0.5 mg-albuterol 3 mg 3 ml inhalation QID PRN shortness 11/18/24 12/02/24 History (2.5 mg base)/3 mL nebulization of breath soln simvastatin 20 mg tablet 40 mg PO DAILY 11/18/24 12/02/24 History tiotropium bromide 2.5 2 inh inhalation DAILY 11/18/24 12/02/24 History mcg/actuation mist for inhalation (Spiriva Respimat) gabapentin 300 mg capsule 300 mg PO TID 12/02/24 12/02/24 History losartan 50 mg tablet (Cozaar) 40 mg PO DAILY 12/02/24 12/02/24 History omeprazole 40 mg capsule,delayed 80 mg PO DAILY 12/02/24 12/02/24 History release potassium chloride 10 mEq 10 meq PO DAILY PRN hypokalemia 12/02/24 12/02/24 History tablet,extended release Allergies Allergy/AdvReac Type Severity Reaction Status Date / Time Egg Derived Allergy Intermediate stomach Verified 12/02/24 22:36 ache oxycodone Allergy Swelling Verified 12/02/24 22:36 of Lip/Tongue/Throat ondansetron (From Zofran) AdvReac Intermediate Hives Verified 12/02/24 22:36 Vital Signs Vital Signs - 24 hr 12/02/24 14:07 12/02/24 14:15 12/02/24 14:16 Temperature Pulse Rate 90 91 92 Respiratory Rate 29 H 19 23 H Blood Pressure 194/99 H Pulse Oximetry 100 Oxygen Delivery 12/02/24 14:30 12/02/24 14:31 12/02/24 14:43 Temperature Pulse Rate 90 90 92 Respiratory Rate 17 20 14 Blood Pressure 207/85 H 166/96 H Pulse Oximetry Oxygen Delivery 12/02/24 14:45 12/02/24 14:50 12/02/24 15:00 Temperature Pulse Rate 92 96 96 Respiratory Rate 17 18 16 Blood Pressure Pulse Oximetry Oxygen Delivery 12/02/24 15:15 12/02/24 15:51 12/02/24 16:00 Temperature Pulse Rate 98 104 H 105 H Respiratory Rate 20 21 H 23 H Blood Pressure Pulse Oximetry Oxygen Delivery 12/02/24 16:20 12/02/24 16:30 12/02/24 17:33 Temperature 37.0 C Pulse Rate 103 H 102 H 102 H Respiratory Rate 14 13 22 H Blood Pressure 211/91 H Pulse Oximetry 98 98 Oxygen Delivery 12/02/24 18:45 12/02/24 20:00 12/02/24 20:09 Temperature 36.1 C L 36.9 C Pulse Rate 99 99 96 Respiratory Rate 14 20 17 Blood Pressure 172/79 H 135/65 119/51 L Pulse Oximetry 99 100 98 Oxygen Delivery 12/03/24 00:00 12/03/24 00:30 12/03/24 04:00 Temperature 36.5 C 36.5 C Pulse Rate 99 94 Respiratory Rate 20 16 Blood Pressure 115/65 134/69 Pulse Oximetry 99 99 Oxygen Delivery Room Air 12/03/24 06:00 12/03/24 07:34 Temperature 36.5 C Pulse Rate 94 Respiratory Rate 16 Blood Pressure 134/69 Pulse Oximetry 99 97 Oxygen Delivery Room Air Exam Const: General: cooperative, healthy appearing and comfortable Orientation/consciousness: oriented to person, oriented to place and oriented to time HENMT: Head: normal to inspection Ears: hearing grossly normal bilaterally Eyes: General: appearance normal, both eyes and all related structures Neck: Neck: normal visual inspection Chest: Chest palpation & inspection: normal inspection of the chest Resp: Effort & Inspection: normal respiratory effort and able to speak in complete sentences Auscultation: no crackles, no rales, no rhonchi, no wheezes and lung sounds not diminished Cardio: Jugular venous distension: no JVD GI: Inspection: normal to inspection GI Palp: Yes abdominal tenderness Other: soft, mild tender to light palpation Skin: General skin exam: normal color Neuro: General: oriented to person, oriented to place and oriented to time Extrem: General: normal to inspection Psych: Appearance: grossly normal Results Laboratory Findings 12/03/24 06:07 12/03/24 06:07 ABG, PT/INR, D-dimer: PT/INR, D-dimer PT 14.0 Seconds (11.1-14.7) 12/02/24 17:35 INR 1.1 12/02/24 17:35 Abnormal lab findings: Abnormal Labs 12/02/24 12/02/24 12/02/24 14:26 15:52 16:49 WBC 15.9 H RBC Hgb Hct MCHC RDW Plt Count 439 H Immature Gran % (Auto) Neut % (Auto) 92.1 H Lymph % (Auto) 4.5 L Lymph # (Auto) 0.71 L [place] # (Auto) Abs Immat Gran (auto) 0.08 H Absolute Neuts (auto) 14.6 H VBG pCO2 26.7 L* VBG pO2 < 27.0 L VBG HCO3 16.1 L Potassium Chloride 108 H Carbon Dioxide 14 L Anion Gap 18 H Creatinine 1.62 H Estimated GFR 32 L Glucose 199 H Lactic Acid AST 48 H Alkaline Phosphatase 166 H NT-Pro-B Natriuret Pep 1900 H Total Protein 9.4 H Albumin Ur Specific [place] 1.040 H Urine Protein 3+ H Urine Glucose (UA) 3+ H Urine Ketones 2+ H Ur Blood (Man) 1+ H 12/02/24 12/02/24 12/03/24 17:35 22:43 06:07 WBC 10.4 H RBC 3.17 L Hgb 9.7 L D Hct 30.7 L MCHC 31.6 L RDW 14.7 H Plt Count Immature Gran % (Auto) 5.8 H Neut % (Auto) Lymph % (Auto) 12.9 L Lymph # (Auto) [place] # (Auto) 0.8 H Abs Immat Gran (auto) 0.61 H Absolute Neuts (auto) 7.6 H VBG pCO2 VBG pO2 VBG HCO3 Potassium 3.2 L Chloride 110 H Carbon Dioxide Anion Gap Creatinine 1.44 H Estimated GFR 37 L Glucose Lactic Acid 2.8 H 2.6 H AST 37 H Alkaline Phosphatase NT-Pro-B Natriuret Pep Total Protein Albumin 3.4 L Ur Specific [place] Urine Protein Urine Glucose (UA) Urine Ketones Ur Blood (Man) Diagnostic Findings Additional studies: ITS Impressions Chest X-Ray 12/02/24 15:43 IMPRESSION: 1. Mild discoid atelectasis at the lingula. No other acute cardiopulmonary disease. Chest/Abdomen/Pelvis CTA 12/02/24 15:51
[2024-12-03] MEDS: levoFLOXacin 750 MG/D5W 150 ML 750 MG/150 ML BAG 100 MG IVPB (14:19)
[2024-12-03] MEDS: ENOXAPARIN 40 MG/0.4 ML SYRINGE SUB-Q (14:23)
[2024-12-03 15:54] LABS: MRSA (PCR) NOT DETECTED (NOT DETECTE)
[2024-12-03] MEDS: FLUTICASONE/SALMETEROL 230-21 MCG INHALER 1 PUFF INHALATION (19:40)
[2024-12-04] VITALS (9 sets, daily range): BP systolic 124–149; BP diastolic 62–72; PULSE 62–95; RESP 16–18; TEMP 36.3–37; O2SAT 94–100
[2024-12-04] MEDS: LACTATED RINGERS 1,000 ML 125 ML IV CONT (05:36)
[2024-12-04 07:17] LABS: Basophils Percent Auto 0.6 % (0.2-1.2); Eosinophils Absolute Auto 0.1 K/mm3 (0-0.3); Eosinophils Percent Auto 1.2 % (0-4.4); Hematocrit 32.2 % (37.0-47.0); Hemoglobin 10.1 g/dL (12.0-15.0); Immature Granulocyte Absolute 0.04 K/mm3 (0.00-0.031); Immature Granulocyte Percent A 0.6 % (0-0.5); Lymphocytes Percent Auto 18.2 % (18.3-44.2); Mean Corpuscular HGB Conc 31.4 g/dl (32-36); Mean Corpuscular Hemoglobin 31.3 pg (26-34); Mean Corpuscular Volume 99.7 fl (80-100); Mean Platelet Volume 9.4 fl (7.4-10.4); Monocytes Absolute Auto 0.5 K/mm3 (0.1-0.6); Monocytes Percent Auto 7.9 % (2.6-8.5); Neutrophils Absolute Auto 4.7 K/mm3 (1.3-6.7); Neutrophils Percent Auto 71.5 % (45.5-73.1); Platelet Count Result 305 k/mm3 (150-375); Red Blood Count 3.23 M/mm3 (4.2-5.4); Red Cell Distribution Width 14.8 % (11.5-14.5); White Blood Count 6.6 K/mm3 (4.5-10.0)
[2024-12-04 07:27] LABS: Alanine Aminotransferase 15 U/L (6-35); Albumin Level 3.4 g/dL (3.5-5.1); Alkaline Phosphatase 93 U/L (38-126); Anion Gap 7 mmol/L (4-12); Aspartate Amino Transferase 49 U/L (14-36); Bilirubin,Total 0.3 mg/dL (0.2-1.3); Blood Urea Nitrogen 12 mg/dL (7-17); Calcium 8.9 mg/dL (8.4-10.2); Carbon Dioxide 23 mmol/L (22-30); Chloride 110 mmol/L (98-107); Estimated CRCL calculation 29 ml/min; Estimated Glomerular Filt Rate 32; Glucose 86 mg/dL (65-110); Potassium 2.9 mmol/L (3.4-5.0); Sodium 140 mmol/L (137-145); Total Protein 6.4 g/dL (6.3-8.2)
[2024-12-04 07:31] LABS: Lactic Acid Reflex 0.7 mmol/L (0.7-2.0)
[2024-12-04] MEDS: FLUTICASONE/SALMETEROL 230-21 MCG INHALER 1 PUFF INHALATION ×2 (08:10→20:00)
[2024-12-04] MEDS: UMECLIDINIUM BROMIDE 62.5 MCG ELLIPTA 1 PUFF INHALATION (08:10)
--- NOTE | 2024-12-04 08:15 | P.PNIM_ITS ---
Progress Note: A&P Assessment and Plan (1) ABBY (acute kidney injury): Code(s): N17.9 - Acute kidney failure, unspecified Status: Acute Assessment and Plan: * Elevated creatinine levels could be due to dehydration from persistent vomiting * Cr1.44 from 1.62, baseline * continue monitoring * 12/04, Cr back up to 1.63 * Continue IVF - LR (2) Nausea & vomiting: Code(s): R11.2 - Nausea with vomiting, unspecified Status: Acute Assessment and Plan: * Endorses intermittent episodes of nausea/vomiting with associated periumbilical abdominal discomfort off and on for the past year. States that these episodes will occur every couple of months and usually go away on their own with no known inciting incident or alleviating factors. Has not been seen by GI or any other specialist for this problem before denies any urinary/bowel complaints. * Excessive emesis likely etiology of underlying ABBY/dehydration/hypokalemia * Will add Compazine for p.r.n. nausea at this time * Dicyclomine for abdominal cramping (3) Left kidney mass: Code(s): N28.89 - Other specified disorders of kidney and ureter Status: Acute Assessment and Plan: * As evidence by CTA abdomen pelvis CTA * Possible focal area of decreased enhancement in the left kidney upper pole * Renal ultrasound -unremarkable * MRI contingent on US findings (4) HTN (hypertension): Code(s): I10 - Essential (primary) hypertension Status: Acute Assessment and Plan: * Patient's blood pressure was reviewed on 12/04 * Blood pressure remains well controlled. * Will continue current medications. (5) Fatty liver: Code(s): K76.0 - Fatty (change of) liver, not elsewhere classified Status: Acute Assessment and Plan: * continue follow up with GI (6) Cavitary lesion of lung: Code(s): J98.4 - Other disorders of lung Status: Acute Assessment and Plan: * As evidence by chest abdomen pelvis CTA 12/02/2024 * Further evaluation advised with PET-CT scan or [address] follow-up. * Blood and sputum cultures, MRSA * Started on Levaquin and Pulm consulted (7) Nodule of lower lobe of left lung: Code(s): R91.1 - Solitary pulmonary nodule Status: Acute Assessment and Plan: * Nodule in the left lower lobe. 6 months follow-up CT is advised. (8) Anxiety: Code(s): F41.9 - Anxiety disorder, unspecified Status: Acute Assessment and Plan: * Continue fluoxetine (9) GERD (gastroesophageal reflux disease): Code(s): K21.9 - Gastro-esophageal reflux disease without esophagitis Status: Acute Assessment and Plan: * Continue omeprazole (10) Osteopenia: Code(s): M85.80 - Other specified disorders of bone density and structure, unspecified site Status: Acute (11) Hiatus hernia syndrome: Code(s): K44.9 - Diaphragmatic hernia without obstruction or gangrene Status: Acute Plan Continue home medications: VTE Prophylaxis: Sq lovenox Code Status: full code Subjective Date/time seen: 12/04/24 08:15 Interval history: 66-year-old female with a PMHx: Anxiety, depression, osteopenia fibromyalgia GERD HTN, tuberculosis who went to ER with complaints of starting to feel tired and sick yesterday morning around 10:00 a.m. Subsequently the patient began experiencing persistent vomiting which continued throughout the day her symptoms for 1 day 12/04/2024 Patient sitting anxiously in bed at time of examination. Denies any chest pain, shortness of breath, episodes of emesis this morning, or urinary/bowel complaints. Still endorsing nausea and periumbilical abdominal discomfort. She states that these issues have been intermittently popping up every few months for the past year but has never seen a GI specialist. Will order GI consult for intractable nausea/vomiting. Pulmonology signed off regarding COPD/lung cancer, will discontinue antibiotics per Pulmonary. Potassium 2.9, will continue to supplement as needed. No episodes of emesis, but will add Compazine for p.r.n. nausea. Review of Systems Review of Systems: All systems reviewed & are unremarkable except as noted in HPI and below Exam Narrative: General: An anxious well-developed, nontoxic-appearing, female lying in bed. arouses easily HEENT: PERRL, EOMI. Oral mucosa moist. Neck: Supple. No midline cervical tenderness. Respiratory: Respirations are non- labored and lungs are clear to auscultation bilaterally. Cardiovascular: Regular rate and rhythm with S1-S2. Gastrointestinal: Abdomen is soft, periumbilical tenderness, and non-distended with positive bowel sounds. Skin: Warm and dry. No rash or lesions on limited exam. Extremities: No cyanosis, clubbing, or edema. Radial and pedal pulses intact. Neurological: Alert and oriented. Cranial nerves 2-12 are grossly intact. No gross focal deficits to casual conversation. Psychiatric: Pleasant and cooperative with normal mood and affect. Judgment and insight intact. Objective Data Vital Signs Vital Signs: Vital Signs - 24 hr 12/03/24 09:00 12/03/24 12:00 12/03/24 19:40 Temperature 97.9 F Pulse Rate 87 87 Respiratory Rate 18 16 Blood Pressure 122/52 L Pulse Oximetry 100 Oxygen Delivery Room Air 12/03/24 20:38 12/03/24 21:07 12/04/24 00:06 Temperature 97.0 F L 98.6 F Pulse Rate 93 81 Respiratory Rate 20 18 Blood Pressure 128/65 124/64 Pulse Oximetry 100 95 94 Oxygen Delivery Room Air 12/04/24 05:29 Temperature 97.7 F Pulse Rate 87 Respiratory Rate 18 Blood Pressure 149/72 H Pulse Oximetry 97 Oxygen Delivery Intake/Output Intake/Output: Intake & Output 12/01/24 12/02/24 12/03/24 12/04/24 23:59 23:59 23:59 23:59 Intake Total 1999 2240 1550 Output Total 1000 250 Balance 1999 1240 1300 Meds/Results Medications: Active Medications Generic Name Dose Route Start Last Admin Trade Name Freq PRN Reason Stop Dose Admin Albuterol 2 puff 12/03/24 13:09 Albuterol Sulfate (*Sp) Aerosol 1 Puff INHALATION Q4HRT PRN Shortness Of Breath Or Wheezing Dicyclomine HCl 20 mg 12/02/24 18:52 Dicyclomine Hcl Inj 20 Mg/2 Ml Vial IM Q6H PRN Abdominal Cramping Enoxaparin Sodium 40 mg 12/03/24 13:00 12/03/24 14:23 Enoxaparin 40 Mg/0.4 Ml Syringe SUB-Q 40 mg Q24H ROXY Administration Famotidine 20 mg 12/02/24 21:00 12/03/24 21:09 Famotidine 20 Mg/2 Ml Vial IV PUSH 20 mg Q12HR ROXY Administration Fluoxetine HCl 30 mg 12/03/24 09:00 12/03/24 10:00 Fluoxetine Hcl 10 Mg Capsule PO 30 mg QAM ROXY Administration Gabapentin 300 mg 12/03/24 09:00 12/03/24 16:49 Gabapentin 300 Mg Capsule PO 300 mg TID ROXY Administration Lactated Ringer's 1,000 mls @ 125 mls/hr 12/02/24 18:55 12/04/24 05:36 Lr - Lactated Ringers Iv IV CONT 125 mls/hr .Q8H ROXY Administration Levofloxacin/Dextrose 750 mg in 150 mls @ 100 mls/hr 12/03/24 13:00 12/03/24 14:19 Levaquin 750 Mg/D5w 150 Ml IVPB 100 mls/hr Q48H ROXY Administration Ibuprofen 600 mg 12/02/24 23:39 Ibuprofen 600 Mg Tablet PO Q6H PRN Pain Rated 4-6 Losartan Potassium 50 mg 12/03/24 09:00 12/03/24 10:00 Losartan Potassium 50 Mg Tablet PO 50 mg DAILY ROXY Administration Morphine Sulfate 4 mg 12/02/24 18:52 12/03/24 00:45 Morphine Sulfate (*Crx) 4 Mg/Ml Inj IV PUSH 4 mg Q2H PRN Administration Pain Rated 7-10 Pantoprazole Sodium 40 mg 12/03/24 09:00 12/03/24 16:49 Pantoprazole 40 Mg Tablet PO 40 mg BID ROXY Administration Potassium Chloride 10 meq 12/02/24 23:39 Potassium Chloride 10 Meq Er Tablet PO DAILY PRN hypokalemia Promethazine HCl 12.5 mg 12/02/24 18:52 12/03/24 00:46 Promethazine Hcl 25 Mg/Ml Ampul IV PUSH 12.5 mg Q6H PRN Administration Nausea Fluticasone/Salmeterol 1 puff 12/03/24 20:00 12/04/24 08:10 Fluticasone/Salmeterol 230-21 Mcg Inhaler 1 Puff INHALATION 1 puff Q12HRT ROXY Administration Simvastatin 40 mg 12/03/24 09:00 12/03/24 10:00 Simvastatin 20 Mg Tablet PO 40 mg DAILY ROXY Administration Umeclidinium [place] 1 puff 12/03/24 08:00 12/04/24 08:10 Umeclidinium [place] 62.5 Mcg Ellipta INHALATION 1 puff DAILYRT ROXY Administration Radiology Results: ITS Impressions Chest X-Ray 12/02/24 15:43 IMPRESSION: 1. Mild discoid atelectasis at the lingula. No other acute cardiopulmonary disease. Chest/Abdomen/Pelvis CTA 12/02/24 15:51 IMPRESSION: CHEST: 1. No pulmonary embolism. 2. No acute cardiopulmonary pathology. 3. Cavitary lesion in the right upper lobe. Further evaluation advised with PET-CT scan or [address] follow-up. 4. Nodule in the left lower lobe. 6 months follow-up CT is advised. ABDOMEN/PELVIS: 1. No evidence of appendicitis, diverticulitis or intestinal obstruction. 2. Sliding hiatus hernia. 3. Fat infiltration of the liver. 4. Possible focal area of decreased enhancement in the left kidney upper pole. Follow-up advised to exclude a mass lesion. Renal Ultrasound 12/03/24 17:56 IMPRESSION: Unremarkable renal sonogram findings. Labs Labs: Laboratory Results - last 24 hr 12/03/24 12/03/24 12/04/24 06:07 14:25 06:41 WBC 6.6 RBC 3.23 L Hgb 10.1 L Hct 32.2 L MCV 99.7 MCH 31.3 MCHC 31.4 L RDW 14.8 H Plt Count 305 MPV 9.4 Immature Gran % (Auto) 0.6 H Neut % (Auto) 71.5 Lymph % (Auto) 18.2 L [place] % (Auto) 7.9 Eos % (Auto) 1.2 Baso % (Auto) 0.6 Lymph # (Auto) 1.20 [place] # (Auto) 0.5 Eos # (Auto) 0.1 Baso # (Auto) 0.0 Abs Immat Gran (auto) 0.04 H Absolute Neuts (auto) 4.7 Absolute Nucleated RBC 0.000 Nucleated RBC % 0.0 Sodium 140 Potassium 2.9 L Chloride 110 H Carbon Dioxide 23 Anion Gap 7 BUN 12 Creatinine 1.63 H Estim Creat Clear Calc 29 Estimated GFR 32 L Glucose 86 Lactic Acid 0.7 Calcium 8.9 Total Bilirubin 0.3 AST 49 H ALT 15 Alkaline Phosphatase 93 Total Protein 6.4 Albumin 3.4 L Procalcitonin 0.1 Nasal MRSA (PCR) Not detected
[2024-12-04] MEDS: FAMOTIDINE 20 MG/2 ML VIAL IV PUSH ×2 (08:36→20:28)
[2024-12-04] MEDS: PANTOPRAZOLE 40 MG TABLET PO ×2 (08:37→16:56)
[2024-12-04] MEDS: LOSARTAN POTASSIUM 50 MG TABLET PO (08:37)
[2024-12-04] MEDS: FLUoxetine HCL 10 MG CAPSULE 30 MG PO (08:37)
[2024-12-04] MEDS: GABAPENTIN 300 MG CAPSULE PO ×3 (08:37→16:56)
[2024-12-04] MEDS: SIMVASTATIN 20 MG TABLET 40 MG PO (08:37)
[2024-12-04] MEDS: POTASSIUM CHLORIDE 20 MEQ PACKET (FOR LIQUID) 40 MEQ PO (09:03)
[2024-12-04] MEDS: LACTATED RINGERS 1,000 ML 100 ML IV CONT ×2 (12:27→18:28)
[2024-12-04] MEDS: ENOXAPARIN 40 MG/0.4 ML SYRINGE SUB-Q (12:29)
--- NOTE | 2024-12-04 16:28 | P.CONGI_ITS ---
Assessment and Plan Assessment and plan (1) Vomiting: Qualifiers: Vomiting type: unspecified Vomiting Intractability: unspecified Nausea presence: with nausea Qualified Code(s): R11.2 - Nausea with vomiting, unspecified Code(s): R11.10 - Vomiting, unspecified Status: Acute Assessment and Plan: This patient's nausea and vomiting are multifactorial. One primary contributing factor may be suboptimally treated heartburn (Omeprazole 20 mg once a day) , potentially exacerbated by her hiatal hernia. However, initiating a twice-daily pantoprazole regimen like she is getting now should help optimize her symptom management. An urgent EGD is not indicated at this time. She should follow up with us in the clinic to evaluate her response to the pantoprazole dose she will be discharged on. Should she continue to experience persistent nausea on the current pantoprazole dose, we will re-evaluate in the office and consider an EGD at that time. Additionally, her partially controlled lung cancer, which was treated with radiation, reportedly causes significant anxiety, also contributing to her nausea and vomiting. GI Consult Note Consult date/time: 12/04/24 16:28 Reason for consult: Nausea / vomiting HPI: Ms. Bertha Tolbert, a 64-year-old female with a history of lung cancer (diagnosed March 2024, post-radiotherapy July 2024) and COPD related to tobacco use, was admitted on December 02, 2024, for dyspnea and intractable nausea and vomiting. Prior to admission, she experienced significant postprandial vomiting and retching. While Zofran caused hives, her emesis has resolved with Compazine, and she now has only mild nausea. A CT scan from December 02, 2024, revealed hepatic steatosis and a hiatal hernia. She endorses significant heartburn, which is only partially controlled with omeprazole 20 mg daily at home. She is currently on pantoprazole 40 mg twice daily as an inpatient. Alcohol and illicit drug use are denied. Review of Systems 2 Review of Systems: All systems reviewed & are unremarkable except as noted in HPI and below PMFSH Past Medical History Medical History Abnormal liver CT Abnormal CT of the abdomen Anxiety Depression Arm fracture, left Osteopenia Arthritis Fibromyalgia DDD (degenerative disc disease) GERD (gastroesophageal reflux disease) Tuberculosis Hx of bronchitis HTN (hypertension) Surgical History Surgical History History of tubal ligation Hx of cholecystectomy History of appendectomy Hx of tonsillectomy Family History Family History (Updated 12/03/24 @ 13:44 by Yarelis Grullon RN) Father Heart disease Myocardial infarction Mother Hyperlipidemia Cerebrovascular accident Hypertension Daughter Drug addiction Other Family history of alcoholism Family history of gout Social History Social History Smoking packs per day: 1 Smoking cigarettes per day: 20.0 Years smoked: 40 Smoking pack-years: 40.00 Smoking status: Current every day smoker Tobacco type: cigarettes Second hand tobacco smoke exposure: Yes Alcohol intake: never Substance use: never Substance use type: does not use Do You Feel Safe in your Home?: Yes Lack of Transportation: No Lack of Food: Sometimes True Current Housing: I Have Housing Concerned About Future Housing: No Difficulty Paying Gas/Electric Bills: No Difficulty Paying for Meds: No Currently Unemployed: No Education: High School Diploma/GED Difficulty w/ Childcare or Family Care: No Gender identity (if verbalized by the patient): Female Spiritual care concerns: No Meds Home Medications and Allergies Home Medications ?Medication ?Instructions ?Recorded ?Confirmed ?Type ibuprofen 600 mg tablet (IBU) 600 mg PO Q6H PRN pain #20 tabs 05/17/19 12/02/24 Rx fluoxetine 20 mg capsule 30 mg PO DAILY 09/19/19 12/02/24 History albuterol 90 mcg/actuation aerosol 90 mcg inhalation PRN shortness of 11/18/24 12/02/24 History inhaler breath budesonide-formoterol HFA 160 2 inh inhalation Q12H 11/18/24 12/02/24 History mcg-4.5 mcg/actuation aerosol inhaler (Breyna) ipratropium 0.5 mg-albuterol 3 mg 3 ml inhalation QID PRN shortness 11/18/24 12/02/24 History (2.5 mg base)/3 mL nebulization of breath soln simvastatin 20 mg tablet 40 mg PO DAILY 11/18/24 12/02/24 History tiotropium bromide 2.5 2 inh inhalation DAILY 11/18/24 12/02/24 History mcg/actuation mist for inhalation (Spiriva Respimat) gabapentin 300 mg capsule 300 mg PO TID 12/02/24 12/02/24 History losartan 50 mg tablet (Cozaar) 40 mg PO DAILY 12/02/24 12/02/24 History omeprazole 40 mg capsule,delayed 80 mg PO DAILY 12/02/24 12/02/24 History release potassium chloride 10 mEq 10 meq PO DAILY PRN hypokalemia 12/02/24 12/02/24 History tablet,extended release Allergies Allergy/AdvReac Type Severity Reaction Status Date / Time Egg Derived Allergy Intermediate stomach Verified 12/02/24 22:36 ache oxycodone Allergy Swelling Verified 12/02/24 22:36 of Lip/Tongue/Throat ondansetron (From Zofran) AdvReac Intermediate Hives Verified 12/02/24 22:36 Vital Signs Vital Signs - 24 hr 12/03/24 19:40 12/03/24 20:38 12/03/24 21:07 Temperature 97.0 F L Pulse Rate 87 93 Respiratory Rate 16 20 Blood Pressure 128/65 Pulse Oximetry 100 95 Oxygen Delivery Room Air 12/04/24 00:06 12/04/24 05:29 12/04/24 08:00 Temperature 98.6 F 97.7 F Pulse Rate 81 87 Respiratory Rate 18 18 Blood Pressure 124/64 149/72 H Pulse Oximetry 94 97 Oxygen Delivery Room Air 12/04/24 08:10 Temperature Pulse Rate 84 Respiratory Rate 16 Blood Pressure Pulse Oximetry Oxygen Delivery Exam 2 Const: General: cooperative and healthy appearing Resp: Effort & Inspection: normal respiratory effort and able to speak in complete sentences Auscultation: clear to auscultation bilaterally Cardio: Rate: regular rate Rhythm: regular rhythm GI: Inspection: normal to inspection GI Palp: No No hepatosplenomegaly present Auscultation: normal bowel sounds Rectal Exam: deferred Skin: General skin exam: normal color Psych: Appearance: grossly normal Mental Status: mental status grossly normal Results Labs 12/04/24 06:41 12/04/24 06:41 Labs: Short CBC 12/04/24 Range/Units 06:41 WBC 6.6 (4.5-10.0) K/mm3 Hgb 10.1 L (12.0-15.0) g/dL Hct 32.2 L (37.0-47.0) % Plt Count 305 (150-375) k/mm3 BMP 12/04/24 06:41 Sodium 140 Potassium 2.9 L Chloride 110 H Carbon Dioxide 23 BUN 12 Creatinine 1.63 H Glucose 86 Calcium 8.9 Liver Function 12/04/24 Range/Units 06:41 Total Bilirubin 0.3 (0.2-1.3) mg/dL AST 49 H (14-36) U/L ALT 15 (6-35) U/L Alkaline Phosphatase 93 (38-126) U/L Albumin 3.4 L (3.5-5.1) g/dL
--- NOTE | 2024-12-04 16:37 | WPDGICN ---
GI Consult Note Consult date/time: 12/04/24 16:37 Reason for consult: Iron deficiency anemia HPI: Bertha Tolbert is a 64 year old female who lives in a assisted living facility and brought to the emergency room when she was found unresponsive. There is a significant history of alcohol abuse for several years. She has undergone extensive workup during this admission, finding a subacute cerebral infarction in the left frontal lobe on a CT scan, however the MRI did not show an acute stroke. Neurology evaluation was undertaken including a normal EEG. [facility] Past Medical History Medical History Abnormal liver CT Abnormal CT of the abdomen Anxiety Depression Arm fracture, left Osteopenia Arthritis Fibromyalgia DDD (degenerative disc disease) GERD (gastroesophageal reflux disease) Tuberculosis Hx of bronchitis HTN (hypertension) Surgical History Surgical History History of tubal ligation Hx of cholecystectomy History of appendectomy Hx of tonsillectomy Family History Family History (Updated 12/03/24 @ 13:44 by Yarelis Grullon RN) Father Heart disease Myocardial infarction Mother Hyperlipidemia Cerebrovascular accident Hypertension Daughter Drug addiction Other Family history of alcoholism Family history of gout Social History Social History Smoking packs per day: 1 Smoking cigarettes per day: 20.0 Years smoked: 40 Smoking pack-years: 40.00 Smoking status: Current every day smoker Tobacco type: cigarettes Second hand tobacco smoke exposure: Yes Alcohol intake: never Substance use: never Substance use type: does not use Do You Feel Safe in your Home?: Yes Lack of Transportation: No Lack of Food: Sometimes True Current Housing: I Have Housing Concerned About Future Housing: No Difficulty Paying Gas/Electric Bills: No Difficulty Paying for Meds: No Currently Unemployed: No Education: High School Diploma/GED Difficulty w/ Childcare or Family Care: No Gender identity (if verbalized by the patient): Female Spiritual care concerns: No Meds Home Medications and Allergies Home Medications ?Medication ?Instructions ?Recorded ?Confirmed ?Type ibuprofen 600 mg tablet (IBU) 600 mg PO Q6H PRN pain #20 tabs 05/17/19 12/02/24 Rx fluoxetine 20 mg capsule 30 mg PO DAILY 09/19/19 12/02/24 History albuterol 90 mcg/actuation aerosol 90 mcg inhalation PRN shortness of 11/18/24 12/02/24 History inhaler breath budesonide-formoterol HFA 160 2 inh inhalation Q12H 11/18/24 12/02/24 History mcg-4.5 mcg/actuation aerosol inhaler (Breyna) ipratropium 0.5 mg-albuterol 3 mg 3 ml inhalation QID PRN shortness 11/18/24 12/02/24 History (2.5 mg base)/3 mL nebulization of breath soln simvastatin 20 mg tablet 40 mg PO DAILY 11/18/24 12/02/24 History tiotropium bromide 2.5 2 inh inhalation DAILY 11/18/24 12/02/24 History mcg/actuation mist for inhalation (Spiriva Respimat) gabapentin 300 mg capsule 300 mg PO TID 12/02/24 12/02/24 History losartan 50 mg tablet (Cozaar) 40 mg PO DAILY 12/02/24 12/02/24 History omeprazole 40 mg capsule,delayed 80 mg PO DAILY 12/02/24 12/02/24 History release potassium chloride 10 mEq 10 meq PO DAILY PRN hypokalemia 12/02/24 12/02/24 History tablet,extended release Allergies Allergy/AdvReac Type Severity Reaction Status Date / Time Egg Derived Allergy Intermediate stomach Verified 12/02/24 22:36 ache oxycodone Allergy Swelling Verified 12/02/24 22:36 of Lip/Tongue/Throat ondansetron (From Zofran) AdvReac Intermediate Hives Verified 12/02/24 22:36 Vital Signs Vital Signs - 24 hr 12/03/24 19:40 12/03/24 20:38 12/03/24 21:07 Temperature 97.0 F L Pulse Rate 87 93 Respiratory Rate 16 20 Blood Pressure 128/65 Pulse Oximetry 100 95 Oxygen Delivery Room Air 12/04/24 00:06 12/04/24 05:29 12/04/24 08:00 Temperature 98.6 F 97.7 F Pulse Rate 81 87 Respiratory Rate 18 18 Blood Pressure 124/64 149/72 H Pulse Oximetry 94 97 Oxygen Delivery Room Air 12/04/24 08:10 Temperature Pulse Rate 84 Respiratory Rate 16 Blood Pressure Pulse Oximetry Oxygen Delivery Results Labs 12/04/24 06:41 12/04/24 06:41 Labs: Short CBC 12/04/24 Range/Units 06:41 WBC 6.6 (4.5-10.0) K/mm3 Hgb 10.1 L (12.0-15.0) g/dL Hct 32.2 L (37.0-47.0) % Plt Count 305 (150-375) k/mm3 BMP 12/04/24 06:41 Sodium 140 Potassium 2.9 L Chloride 110 H Carbon Dioxide 23 BUN 12 Creatinine 1.63 H Glucose 86 Calcium 8.9 Liver Function 12/04/24 Range/Units 06:41 Total Bilirubin 0.3 (0.2-1.3) mg/dL AST 49 H (14-36) U/L ALT 15 (6-35) U/L Alkaline Phosphatase 93 (38-126) U/L Albumin 3.4 L (3.5-5.1) g/dL
[2024-12-04] MEDS: PROCHLORPERAZINE MALEATE 5 MG TABLET PO (18:27)
[2024-12-05 00:12] VITALS: BP 140/64; PULSE 60; RESP 16; TEMP 36.5; O2SAT 100
[2024-12-05 04:21] VITALS: BP 142/65; PULSE 78; RESP 16; TEMP 36.4; O2SAT 96
[2024-12-05 06:39] LABS: Basophils Percent Auto 0.6 % (0.2-1.2); Eosinophils Absolute Auto 0.1 K/mm3 (0-0.3); Eosinophils Percent Auto 2.1 % (0-4.4); Hematocrit 31.9 % (37.0-47.0); Immature Granulocyte Absolute 0.01 K/mm3 (0.00-0.031); Immature Granulocyte Percent A 0.2 % (0-0.5); Lymphocytes Absolute Auto 0.98 K/mm3 (0.9-3.2); Lymphocytes Percent Auto 18.9 % (18.3-44.2); Mean Corpuscular HGB Conc 31.3 g/dl (32-36); Mean Corpuscular Hemoglobin 30.8 pg (26-34); Mean Corpuscular Volume 98.2 fl (80-100); Mean Platelet Volume 9.6 fl (7.4-10.4); Monocytes Absolute Auto 0.5 K/mm3 (0.1-0.6); Monocytes Percent Auto 10.4 % (2.6-8.5); Neutrophils Absolute Auto 3.5 K/mm3 (1.3-6.7); Neutrophils Percent Auto 67.8 % (45.5-73.1); Platelet Count Result 280 k/mm3 (150-375); Red Blood Count 3.25 M/mm3 (4.2-5.4); Red Cell Distribution Width 14.9 % (11.5-14.5); White Blood Count 5.2 K/mm3 (4.5-10.0)
[2024-12-05 06:53] LABS: Alanine Aminotransferase 16 U/L (6-35); Albumin Level 3.6 g/dL (3.5-5.1); Alkaline Phosphatase 94 U/L (38-126); Anion Gap 8 mmol/L (4-12); Aspartate Amino Transferase 46 U/L (14-36); Bilirubin,Total 0.4 mg/dL (0.2-1.3); Blood Urea Nitrogen 8 mg/dL (7-17); Calcium 9.1 mg/dL (8.4-10.2); Carbon Dioxide 23 mmol/L (22-30); Chloride 110 mmol/L (98-107); Estimated CRCL calculation 31 ml/min; Estimated Glomerular Filt Rate 35; Glucose 94 mg/dL (65-110); Potassium 3.4 mmol/L (3.4-5.0); Sodium 141 mmol/L (137-145); Total Protein 6.8 g/dL (6.3-8.2)
[2024-12-05 08:00] VITALS: BP 170/80; PULSE 87; RESP 18; TEMP 36.8; O2SAT 97
[2024-12-05 08:27] VITALS: O2SAT 97
[2024-12-05] MEDS: FLUTICASONE/SALMETEROL 230-21 MCG INHALER 1 PUFF INHALATION (08:27)
[2024-12-05] MEDS: UMECLIDINIUM BROMIDE 62.5 MCG ELLIPTA 1 PUFF INHALATION (08:27)
--- NOTE | 2024-12-05 08:38 | P.PNIM_ITS ---
Progress Note: A&P Assessment and Plan (1) ABBY (acute kidney injury): Code(s): N17.9 - Acute kidney failure, unspecified Status: Acute Assessment and Plan: * Elevated creatinine levels could be due to dehydration from persistent vomiting * Cr1.44 from 1.62, baseline * continue monitoring * 12/04, Cr back up to 1.63 * Continue IVF - LR (2) Nausea & vomiting: Code(s): R11.2 - Nausea with vomiting, unspecified Status: Acute Assessment and Plan: * Endorses intermittent episodes of nausea/vomiting with associated periumbilical abdominal discomfort off and on for the past year. States that these episodes will occur every couple of months and usually go away on their own with no known inciting incident or alleviating factors. Has not been seen by GI or any other specialist for this problem before denies any urinary/bowel complaints. * Excessive emesis likely etiology of underlying ABBY/dehydration/hypokalemia * Will add Compazine for p.r.n. nausea at this time * Dicyclomine for abdominal cramping (3) Left kidney mass: Code(s): N28.89 - Other specified disorders of kidney and ureter Status: Acute Assessment and Plan: * As evidence by CTA abdomen pelvis CTA * Possible focal area of decreased enhancement in the left kidney upper pole * Renal ultrasound -unremarkable * MRI contingent on US findings (4) HTN (hypertension): Code(s): I10 - Essential (primary) hypertension Status: Acute Assessment and Plan: * Patient's blood pressure was reviewed on 12/04 * Blood pressure remains well controlled. * Will continue current medications. (5) Fatty liver: Code(s): K76.0 - Fatty (change of) liver, not elsewhere classified Status: Acute Assessment and Plan: * continue follow up with GI (6) Cavitary lesion of lung: Code(s): J98.4 - Other disorders of lung Status: Acute Assessment and Plan: * As evidence by chest abdomen pelvis CTA 12/02/2024 * Further evaluation advised with PET-CT scan or [address] follow-up. * Blood and sputum cultures, MRSA * Started on Levaquin and Pulm consulted (7) Nodule of lower lobe of left lung: Code(s): R91.1 - Solitary pulmonary nodule Status: Acute Assessment and Plan: * Nodule in the left lower lobe. 6 months follow-up CT is advised. (8) Anxiety: Code(s): F41.9 - Anxiety disorder, unspecified Status: Acute Assessment and Plan: * Continue fluoxetine (9) GERD (gastroesophageal reflux disease): Code(s): K21.9 - Gastro-esophageal reflux disease without esophagitis Status: Acute Assessment and Plan: * Continue omeprazole (10) Osteopenia: Code(s): M85.80 - Other specified disorders of bone density and structure, unspecified site Status: Acute (11) Hiatus hernia syndrome: Code(s): K44.9 - Diaphragmatic hernia without obstruction or gangrene Status: Acute Plan Continue home medications: VTE Prophylaxis: Sq lovenox Code Status: full code Subjective Date/time seen: 12/05/24 08:38 Interval history: 66-year-old female with a PMHx: Anxiety, depression, osteopenia fibromyalgia GERD HTN, tuberculosis who went to ER with complaints of starting to feel tired and sick yesterday morning around 10:00 a.m. Subsequently the patient began experiencing persistent vomiting which continued throughout the day her symptoms for 1 day 12/04/2024 Patient sitting anxiously in bed at time of examination. Denies any chest pain, shortness of breath, episodes of emesis this morning, or urinary/bowel complaints. Still endorsing nausea and periumbilical abdominal discomfort. She states that these issues have been intermittently popping up every few months for the past year but has never seen a GI specialist. Will order GI consult for intractable nausea/vomiting. Pulmonology signed off regarding COPD/lung cancer, will discontinue antibiotics per Pulmonary. Potassium 2.9, will continue to supplement as needed. No episodes of emesis, but will add Compazine for p.r.n. nausea. 12/05 assuming care. pt is seen and examined. Review of Systems Review of Systems: All systems reviewed & are unremarkable except as noted in HPI and below Exam Narrative: General: An anxious well-developed, nontoxic-appearing, female lying in bed. arouses easily HEENT: PERRL, EOMI. Oral mucosa moist. Neck: Supple. No midline cervical tenderness. Respiratory: Respirations are non- labored and lungs are clear to auscultation bilaterally. Cardiovascular: Regular rate and rhythm with S1-S2. Gastrointestinal: Abdomen is soft, periumbilical tenderness, and non-distended with positive bowel sounds. Skin: Warm and dry. No rash or lesions on limited exam. Extremities: No cyanosis, clubbing, or edema. Radial and pedal pulses intact. Neurological: Alert and oriented. Cranial nerves 2-12 are grossly intact. No gross focal deficits to casual conversation. Psychiatric: Pleasant and cooperative with normal mood and affect. Judgment and insight intact. Objective Data Vital Signs Vital Signs: Vital Signs - 24 hr 12/04/24 12:00 12/04/24 16:00 12/04/24 20:00 Temperature 98.3 F 98.1 F Pulse Rate 78 80 95 Respiratory Rate 18 16 16 Blood Pressure 144/72 H 140/68 Pulse Oximetry 99 100 Oxygen Delivery Fraction of Inspired Oxygen 12/04/24 20:04 12/04/24 20:20 12/05/24 00:12 Temperature 97.3 F L 97.7 F Pulse Rate 95 62 60 Respiratory Rate 16 18 16 Blood Pressure 148/62 H 140/64 Pulse Oximetry 98 100 100 Oxygen Delivery Room Air Fraction of Inspired Oxygen 12/05/24 04:21 12/05/24 08:27 Temperature 97.6 F Pulse Rate 78 Respiratory Rate 16 Blood Pressure 142/65 H Pulse Oximetry 96 97 Oxygen Delivery Room Air Fraction of Inspired Oxygen Intake/Output Intake/Output: Intake & Output 12/02/24 12/03/24 12/04/24 12/05/24 23:59 23:59 23:59 23:59 Intake Total 1999 2240 4151.7 1420 Output Total 1000 1150 1625 Balance 1999 1240 3001.7 -205 Meds/Results Medications: Active Medications Generic Name Dose Route Start Last Admin Trade Name Freq PRN Reason Stop Dose Admin Albuterol 2 puff 12/03/24 13:09 Albuterol Sulfate (*Sp) Aerosol 1 Puff INHALATION Q4HRT PRN Shortness Of Breath Or Wheezing Dicyclomine HCl 20 mg 12/02/24 18:52 Dicyclomine Hcl Inj 20 Mg/2 Ml Vial IM Q6H PRN Abdominal Cramping Enoxaparin Sodium 40 mg 12/03/24 13:00 12/04/24 12:29 Enoxaparin 40 Mg/0.4 Ml Syringe SUB-Q 40 mg Q24H ROXY Administration Famotidine 20 mg 12/02/24 21:00 12/04/24 20:28 Famotidine 20 Mg/2 Ml Vial IV PUSH 20 mg Q12HR ROXY Administration Fluoxetine HCl 30 mg 12/03/24 09:00 12/04/24 08:37 Fluoxetine Hcl 10 Mg Capsule PO 30 mg QAM ROXY Administration Gabapentin 300 mg 12/03/24 09:00 12/04/24 16:56 Gabapentin 300 Mg Capsule PO 300 mg TID ROXY Administration Lactated Ringer's 1,000 mls @ 100 mls/hr 12/04/24 11:45 12/05/24 03:10 Lr - Lactated Ringers Iv IV CONT 100 mls/hr .Q10H ROXY Infusion Ibuprofen 600 mg 12/02/24 23:39 Ibuprofen 600 Mg Tablet PO Q6H PRN Pain Rated 4-6 Losartan Potassium 50 mg 12/03/24 09:00 12/04/24 08:37 Losartan Potassium 50 Mg Tablet PO 50 mg DAILY ROXY Administration Morphine Sulfate 4 mg 12/02/24 18:52 12/03/24 00:45 Morphine Sulfate (*Crx) 4 Mg/Ml Inj IV PUSH 4 mg Q2H PRN Administration Pain Rated 7-10 Pantoprazole Sodium 40 mg 12/03/24 09:00 12/04/24 16:56 Pantoprazole 40 Mg Tablet PO 40 mg BID ROXY Administration Potassium Chloride 10 meq 12/02/24 23:39 Potassium Chloride 10 Meq Er Tablet PO DAILY PRN hypokalemia Prochlorperazine Maleate 5 mg 12/04/24 11:38 12/04/24 18:27 Prochlorperazine Maleate 5 Mg Tablet PO 5 mg Q6H PRN Administration Nausea And Vomiting Promethazine HCl 12.5 mg 12/02/24 18:52 12/03/24 00:46 Promethazine Hcl 25 Mg/Ml Ampul IV PUSH 12.5 mg Q6H PRN Administration Nausea Fluticasone/Salmeterol 1 puff 12/03/24 20:00 12/05/24 08:27 Fluticasone/Salmeterol 230-21 Mcg Inhaler 1 Puff INHALATION 1 puff Q12HRT ROXY Administration Simvastatin 40 mg 12/03/24 09:00 12/04/24 08:37 Simvastatin 20 Mg Tablet PO 40 mg DAILY ROXY Administration Umeclidinium Mercedes 1 puff 12/03/24 08:00 12/05/24 08:27 Umeclidinium Mercedes 62.5 Mcg Ellipta INHALATION 1 puff DAILYRT ROXY Administration Radiology Results: ITS Impressions Chest X-Ray 12/02/24 15:43 IMPRESSION: 1. Mild discoid atelectasis at the lingula. No other acute cardiopulmonary dise ase. Chest/Abdomen/Pelvis CTA 12/02/24 15:51 IMPRESSION: CHEST: 1. No pulmonary embolism. 2. No acute cardiopulmonary pathology. 3. Cavitary lesion in the right upper lobe. Further evaluation advised with PET-CT scan or [address] follow-up. 4. Nodule in the left lower lobe. 6 months follow-up CT is advised. ABDOMEN/PELVIS: 1. No evidence of appendicitis, diverticulitis or intestinal obstruction. 2. Sliding hiatus hernia. 3. Fat infiltration of the liver. 4. Possible focal area of decreased enhancement in the left kidney upper pole. Follow-up advised to exclude a mass lesion. Renal Ultrasound 12/03/24 17:56 IMPRESSION: Unremarkable renal sonogram findings. Labs Labs: Laboratory Results - last 24 hr 12/05/24 05:40 WBC 5.2 RBC 3.25 L Hgb 10.0 L Hct 31.9 L MCV 98.2 MCH 30.8 MCHC 31.3 L RDW 14.9 H Plt Count 280 MPV 9.6 Immature Gran % (Auto) 0.2 Neut % (Auto) 67.8 Lymph % (Auto) 18.9 Keith % (Auto) 10.4 H Eos % (Auto) 2.1 Baso % (Auto) 0.6 Lymph # (Auto) 0.98 Keith # (Auto) 0.5 Eos # (Auto) 0.1 Baso # (Auto) 0.0 Abs Immat Gran (auto) 0.01 Absolute Neuts (auto) 3.5 Absolute Nucleated RBC 0.000 Nucleated RBC % 0.0 Sodium 141 Potassium 3.4 Chloride 110 H Carbon Dioxide 23 Anion Gap 8 BUN 8 Creatinine 1.51 H Estim Creat Clear Calc 31 Estimated GFR 35 L Glucose 94 Calcium 9.1 Total Bilirubin 0.4 AST 46 H ALT 16 Alkaline Phosphatase 94 Total Protein 6.8 Albumin 3.6
[2024-12-05] MEDS: FAMOTIDINE 20 MG/2 ML VIAL IV PUSH (09:03)
[2024-12-05] MEDS: FLUoxetine HCL 10 MG CAPSULE 30 MG PO (09:03)
[2024-12-05] MEDS: LOSARTAN POTASSIUM 50 MG TABLET PO (09:03)
[2024-12-05] MEDS: PANTOPRAZOLE 40 MG TABLET PO (09:03)
[2024-12-05] MEDS: SIMVASTATIN 20 MG TABLET 40 MG PO (09:03)
[2024-12-05] MEDS: GABAPENTIN 300 MG CAPSULE PO ×2 (09:03→13:04)
[2024-12-05] MEDS: LACTATED RINGERS 1,000 ML 100 ML IV CONT (09:08)
--- NOTE | 2024-12-05 11:26 | P.DS_ITS ---
DS: Admitting Diagnosis Discharge Date 12/05 Admitting Diagnosis n/v DS: Discharge Diagnosis Discharge Diagnosis (1) ABBY (acute kidney injury): Code(s): N17.9 - Acute kidney failure, unspecified Status: Acute (2) Nausea & vomiting: Code(s): R11.2 - Nausea with vomiting, unspecified Status: Acute (3) Left kidney mass: Code(s): N28.89 - Other specified disorders of kidney and ureter Status: Acute (4) HTN (hypertension): Code(s): I10 - Essential (primary) hypertension Status: Acute (5) Fatty liver: Code(s): K76.0 - Fatty (change of) liver, not elsewhere classified Status: Acute (6) Cavitary lesion of lung: Code(s): J98.4 - Other disorders of lung Status: Acute Assessment and Plan: * (7) Nodule of lower lobe of left lung: Code(s): R91.1 - Solitary pulmonary nodule Status: Acute Assessment and Plan: * Nodule in the left lower lobe. 6 months follow-up CT is advised. (8) Anxiety: Code(s): F41.9 - Anxiety disorder, unspecified Status: Acute Assessment and Plan: * Continue fluoxetine (9) GERD (gastroesophageal reflux disease): Code(s): K21.9 - Gastro-esophageal reflux disease without esophagitis Status: Acute Assessment and Plan: * Continue omeprazole (10) Osteopenia: Code(s): M85.80 - Other specified disorders of bone density and structure, unspecified site Status: Acute (11) Hiatus hernia syndrome: Code(s): K44.9 - Diaphragmatic hernia without obstruction or gangrene Status: Acute DS: Summary Hospital Course Hospital Course: 66-year-old female with a PMHx: Anxiety, depression, osteopenia fibromyalgia GERD HTN, tuberculosis who went to ER with complaints of starting to feel tired and sick yesterday morning around 10:00 a.m. Subsequently the patient began experiencing persistent vomiting which continued throughout the day her symptoms for 1 day Several issues were addressed: # n/v GI was consulted contributing factor for n/v could be suboptimally treated heartburn (Omeprazole 20 mg once a day) - she was staretd on twice-daily pantoprazole regimen - An urgent EGD is not indicated at this time. -if she continues to experience persistent nausea on the current pantoprazole dose, she is advised to call office sooner # abby * Elevated creatinine levels could be due to dehydration from persistent vomiting * Cr1.44 from 1.62, baseline * continue monitoring * 12/04, Cr back up to 1.63 * she received iV fluids # Left kidney mass * As evidence by CTA abdomen pelvis CTA * Possible focal area of decreased enhancement in the left kidney upper pole * Renal ultrasound -unremarkable * f/u with PCP # Cavitary lesion of lung: * As evidence by chest abdomen pelvis CTA 12/02/2024 * Further evaluation advised with PET-CT scan or [address] follow-up. * Blood and sputum cultures, MRSA * Started on Levaquin and Pulm consulted * Notes reviewed: * will place the patient on her equipment home inhalers and I prescribed Advair 230-21 at 1 puff q.12 hours, Incruse Ellipta 1 puff q.day, albuterol 2 puffs Q 4 hours p.r.n. shortness of breath or wheezing. She does not need antibiotics from a pulmonary perspective. # anxiety continue fluoxetine Status at Discharge Functional status at discharge: independent ambulation Overall status at discharge: patient is progressing back to baseline Time Spent with Patient Time attestation: Total time spent providing and/or coordinating discharge services: Time spent: Greater than 30 minutes Exam Narrative: General: An anxious well-developed, nontoxic-appearing, female lying in bed. HEENT: PERRL, EOMI. Oral mucosa moist. Neck: Supple. No midline cervical tenderness. Respiratory: Respirations are non- labored and lungs are clear to auscultation bilaterally. Cardiovascular: Regular rate and rhythm with S1-S2. Gastrointestinal: Abdomen is soft, periumbilical tenderness, and non-distended with positive bowel sounds. Denies nausea or vomiting today Skin: Warm and dry. No rash or lesions on limited exam. Extremities: No cyanosis, clubbing, or edema. Radial and pedal pulses intact. Neurological: Alert and oriented. Cranial nerves 2-12 are grossly intact. No gross focal deficits to casual conversation. Psychiatric: Pleasant and cooperative with normal mood and affect. Judgment and insight intact. Const: General: comfortable DS: Data Data Completed and Pending Labs on day of discharge: Labs from last 24 hours 12/05/24 05:40 WBC 5.2 RBC 3.25 L Hgb 10.0 L Hct 31.9 L MCV 98.2 MCH 30.8 MCHC 31.3 L RDW 14.9 H Plt Count 280 MPV 9.6 Immature Gran % (Auto) 0.2 Neut % (Auto) 67.8 Lymph % (Auto) 18.9 [place] % (Auto) 10.4 H Eos % (Auto) 2.1 Baso % (Auto) 0.6 Lymph # (Auto) 0.98 [place] # (Auto) 0.5 Eos # (Auto) 0.1 Baso # (Auto) 0.0 Abs Immat Gran (auto) 0.01 Absolute Neuts (auto) 3.5 Absolute Nucleated RBC 0.000 Nucleated RBC % 0.0 Sodium 141 Potassium 3.4 Chloride 110 H Carbon Dioxide 23 Anion Gap 8 BUN 8 Creatinine 1.51 H Estim Creat Clear Calc 31 Estimated GFR 35 L Glucose 94 Calcium 9.1 Total Bilirubin 0.4 AST 46 H ALT 16 Alkaline Phosphatase 94 Total Protein 6.8 Albumin 3.6 Preliminary micro results at discharge 12/03/24 12:58 Blood Culture - Preliminary Blood 12/03/24 12:56 Blood Culture - Preliminary Blood 12/02/24 22:43 Blood Culture - Preliminary Blood 12/02/24 22:43 Blood Culture - Preliminary Blood Discharge Plan Discharge Attending physician on discharge: Kofi Solitario Consulting providers: Gilbert Byers; Davion Gonzalez Discharging Clinician: Deepa Kilpatrick Patient Disposition: Home Activity: october shower Diet: heart healthy Discharge Instructions: you were admitted for nausea and vomiting. GI saw you and started you on Protonix. Please take as directed. F/u with GI for further evaluation. Renal ultrasound was done: IMPRESSION: Unremarkable renal sonogram findings. Pulmonology saw you: conitnue Advair 230-21 at 1 puff q.12 hours, Incruse Ellipta 1 puff q.day, albuterol 2 puffs Q 4 hours p.r.n. shortness of breath or wheezing Patient Instructions: Antibiotic Form Patient Language: Kosovan Stand Alone Forms: General Discharge Information Follow-up/Referrals: Wesley Yeboah MD [Physician] - 2 Weeks UNKNOWN,DOCTOR [Primary Care Provider] - 1 Week Discharge Medications: New pantoprazole 40 mg Tablet,Delayed Release (Dr/Ec) 40 mg PO BID Qty: 90 0RF Incruse Ellipta 62.5 mcg/actuation Blister With Device 1 inh inhalation DAILYRT Qty: 7 0RF Continued budesonide-formoterol [Breyna] 160-4.5 mcg/actuation HFA aerosol inhaler 2 inh inhalation Q12H albuterol 90 mcg/actuation aerosol 90 mcg inhalation PRN ipratropium-albuterol 0.5 mg-3 mg(2.5 mg base)/3 mL solution for nebulization 3 ml inhalation QID PRN (Reason: shortness of breath) simvastatin 20 mg tablet 40 mg PO DAILY ibuprofen [IBU] 600 mg tablet 600 mg PO Q6H PRN (Reason: pain) Qty: 20 0RF gabapentin 300 mg capsule 300 mg PO TID losartan [Cozaar] 50 mg tablet 40 mg PO DAILY potassium chloride 10 mEq tablet extended release 10 meq PO DAILY PRN (Reason: hypokalemia) fluoxetine 20 mg capsule 30 mg PO DAILY Discontinued Spiriva Respimat 2.5 mcg/actuation mist 2 inh inhalation DAILY omeprazole 40 mg capsule,delayed release(DR/EC) 80 mg PO DAILY Rx Instructions: Take 1 capsule by mouth once daily Date of admission: 12/02/24 18:52 Primary Care Provider: UNKNOWN,DOCTOR Admitting Provider: Ramon Power Attending physician on admission: Ramon Power Condition: Improved Hospitalist MIPS Heart Failure (Exclusion) Patient has history of Heart Transplant or Left Ventricular Assistive Device?: No IF YES, STOP HERE Heart Failure (Qualifier) Patient has current or prior documentation of LVEF less than or equal to 40%, or mod/servere depressed LVSF?: No IF NO, STOP HERE
[2024-12-05 12:00] VITALS: BP 159/87; PULSE 90; RESP 18; TEMP 36.7; O2SAT 99
[2024-12-05 16:00] VITALS: BP 144/73; PULSE 88; RESP 18; TEMP 36.9; O2SAT 100
== END 2024-12-05 17:45 | disposition home or self-care (01) ==
LOC: ANHED 18:19 → ANH3MEDSUR 21:27
PROVIDERS: General Practice; Internal Medicine Pulmonary Disease; Nurse Practitioner; Registered Nurse; Admitting Provider Internal Medicine; Emergency Provider Emergency Medicine; Visit Provider Internal Medicine
DX: N17.9 Acute kidney failure, unspecified (principal); R11.2 Nausea with vomiting, unspecified; N28.89 Other specified disorders of kidney and ureter; I10 Essential (primary) hypertension; K76.0 Fatty (change of) liver, not elsewhere classified; C34.11 Malignant neoplasm of upper lobe, right bronchus or lung; R91.1 Solitary pulmonary nodule; J44.9 Chronic obstructive pulmonary disease, unspecified; F17.210 Nicotine dependence, cigarettes, uncomplicated; F41.9 Anxiety disorder, unspecified; K21.9 Gastro-esophageal reflux disease without esophagitis; M85.80 Other specified disorders of bone density and structure, unspecified site; K44.9 Diaphragmatic hernia without obstruction or gangrene; F32.A Depression, unspecified; M79.7 Fibromyalgia; Z79.899 Other long term (current) drug therapy; Z86.11 Personal history of tuberculosis; Z90.49 Acquired absence of other specified parts of digestive tract
CPT/HCPCS: 36415; 71046; 71275; 74177; 76775; 80053; 80307; 81001; 82803; 83036; 83605; 83690; 83735; 83880; 84145; 84484; 85025; 85610; 85730; 87040; 87641; 93005; 94640; 96361; 96372; 96374; 96375; 96376; 99285; A9270; G0378; G0379; J0360; J1650; J1956; J2270; J2550; J7120; Q9967

== ENCOUNTER 2025-02-28 13:33 | Outpatient (CLI) | payer OTHER, SELFPAY ==
--- NOTE | ~2025-02-28 | MM_ITS ---
EXAMINATION: MM screening [facility] BI w clint HISTORY: Screening TECHNIQUE: Craniocaudal and mediolateral oblique 3-D tomosynthesis images were obtained and synthetic 2-D images were generated. CAD analysis was submitted and interpreted. COMPARISON: 10/21/2023 BREAST PARENCHYMAL COMPOSITION: Not Dense: The breasts are almost entirely fatty. FINDINGS: There is no evidence of suspicious mass, calcification, or architectural distortion to suggest malignancy in either breast. [There has been no significant interval change. IMPRESSION: 1. No mammographic evidence of malignancy. Recommend routine screening mammography in one year. BI-RADS Category 1: Negative Reviewed, dictated, and finalized at Location A. Reviewed, dictated and finalized at location Q. IMPRESSION: 1. No mammographic evidence of malignancy. Recommend routine screening mammogra phy in one year. BI-RADS Category 1: Negative
--- OUTSIDE RECORDS SUMMARY | 2025-02-28 13:41 | XMS_ITS | Clinical Summary ---
Author Organization [facility] Address [address], [address] [address] Phone Care Team Providers Care Egyptologist Name Role Phone Esther Jain MD Primary Care Provider [phone] Anthony Hammond MD Unavailable [phone] Medications polyethylene glycol (MIRALAX) Powder Use entire 255g bottle with 64oz of clear liquid as directed for colonoscopy prep. 255 g 7 Active Social History Tobacco Use Types Packs/Day Years Used Date Smoking Tobacco: Never Assessed Comments Unknown Sex and Gender Information Value Date Recorded Sex Assigned at Not on file Legal Sex Female 10:57 PM CDT Gender Identity Not on file Sexual Orientation Not on file Plan of Treatment Health Maintenance Due Date Last Done Comments Hepatitis C Virus (HCV) Screening 1962 TdaP Immunization 1962 Pap Smear 1983 Cervical Cancer Screening (CCS) 01/07/1992 HPV/Cotest 01/07/1992 Cologuard 2007 Immunochemical Fecal Occult Blood 2007 Pneumococcal Immunization (5 0+ years) (1 of 1 - PCV) 01/07/2012 Zoster Immunization (1 of 2) 01/07/2012 Colonoscopy 08/10/2022 08/10/2017 Colorectal Cancer Screening 08/10/2022 SARS-COV-2 Immunization ( season) 2024 Influenza Immunization (#1) 2025 Respiratory Syncytial Virus (RSV) Immunization (Adult) (1 - 1-dose 75+ series) 2037 Hepatitis B Immunization Aged Out No longer eligible based on patient's age to complete this topic Human Papillomavirus (HPV) Immunization Aged Out No longer eligible b ased on patient's age to complete this topic Meningococcal Immunization (ACWY) Aged Out No longer eligible based on patient's age to complete this topic Rotavirus Immunization Aged Out No lo nger eligible based on patient's age to complete this topic Procedures Procedure Name Priority Date/Time Associated Diagnosis Comments COLONOSCOPY Routine 08/10/2017 from Last 3 Months or Most Recently Relevant to Health Maintenance Results * COLONOSCOPY (08/10/2017) Iam Altamirano DO PROCEDURE/MINOR SURGICAL ORDERA BLES Final Result from Last 3 Months or Most Recently Relevant to Health Maintenance Insurance [phone] (Work) [address] Care Teams Egyptologist Relationship Specialty Start Date End Date Esther Jain MD [address] [place] [address] PCP - General Family Medicine 11/27/16 Anthony Hammond MD [address] [place] [address] Obstetrics & Gynecology 11/27/16
--- OUTSIDE RECORDS SUMMARY | 2025-02-28 13:42 | XMS_ITS ---
Author Organization [facility] Address [address] [place] [address] Care Team Providers Care Wooden Fence Erector Name Role Phone Tai Torres MD Primary Care Provider [phone] Joseph Friend MD Unavailable [phone] Moe Rubio MD Unavailable [phone] Keagan Kelsey MD Unavailable [phone] Active Problems Problem Noted Date Diagnosed Date Benign paroxysmal positional vertigo 01/19/2025 Personal history of radiation therapy 09/28/2024 Chronic obstructive pulmonary disease 08/29/2024 NSCLC of right lung 05/17/2024 Cancer Staging:Clinical stage from 06/18/2024: cT2, cN0, cM0 - Signed by Keagan Kelsey MD on 06/18/2024 Cavitating mass in right upper lung lobe 024 Simple chronic bronchitis 03/29/2024 Weight loss 03/29/2024 Cigarette nicotine dependence without complicati on 03/29/2024 Current Treatment and Therapy Plans No current plan information found. Past Treatment and Therapy Plans No past plan information found. Radiation Treatments (No Episode) * Course C1 R LUNG 202407/27/2024 - 08/05/2024 Treatment Period Energy Fraction Dose Fractions Total Dose Plans Planned R LUNG 07/27/2024 - 08/05/2024 750 8 / 6,000 Reference Points Delivered PTV_RLung 07/27/2024 - 08/05/2024 6,000 Lifetime Dose Tracking * Chemical Lifetime Dose Automatic Entry Manual Entr y Fluoro Time 2.143 minutes 2.143 minutes 0 minutes Air kerma at the reference point (Ka,r) 6.29 mGy 6 .29 mGy 0 mGy
--- OUTSIDE RECORDS SUMMARY | 2025-02-28 13:42 | XMS_ITS | Clinical Summary ---
Author Organization [facility] Address [address] [place] [address] Care Team Providers Care Dry End Tester Name Role Phone Tai Torres MD Primary Care Provider [phone] Joseph Friend MD Unavailable [phone] Moe Rubio MD Unavailable [phone] Keagan Kelsey MD Unavailable [phone] Allergies Active Allergy Reactions Criticality Noted Date Comments Codeine Angioedema High 07/02/2023 Egg Other (See comments) Low 03/30/2024 GI upset Hydrocodone-Acetaminophen Swollen tongue High 2023 Ondansetron Hcl Hives Medium 01/19/2025 Medications potassium chloride ER 20 mEq CR tabletIndications :Pt states she is told when her potassium is low and when to take it Take 1 tablet (20 mEq total) by mouth as needed 12/07/19 24 Active losartan (COZAAR) 50 mg tablet Take 1 tablet (50 mg total) by mouth daily 12/05/19 21 Active gabapentin (NEURONTIN) 300 mg capsule Take 1 capsule (300 mg total) by mouth 3 (three) times a day 04/21/20 23 Active albuterol HFA (PROVENTIL HFA,VENTOLIN HFA,PROAIR HFA) 90 mcg/actuation inhaler Inhale 2 puffs every 4 (four) hours as needed 06/25/19 24 Active diphenhydrAMINE-a cetaminophen (TYLENOL PM) 25-500 mg tablet Take 3 tablets by mouth nightly Active zoledronic acid 1 Application in sodium chloride 0.9% 100 mL IVPB Infuse 1 Application into a venous catheter as directed Takes yearly (gets in November) 11/19/19 24 Active FLUoxetine 10 mg capsule Take 3 tablet/capsule (30 mg total) by mouth daily 10/15/19 23 Active rosuvastatin (CRESTOR) 40 mg tablet Take 1 tablet (40 mg total) by mouth daily 08/13/19 25 Active budesonide-formot Rakesh (SYMBICORT) 160-4.5 mcg/actuation inhaler Inhale 2 puffs 2 (two) times a day Rinse mouth with water after use. Do not swallow. 10.2 g 5 09/01/19 25 Active tiotropium bromide (SPIRIVA RESPIMAT) 2.5 mcg/actuation inhaler Inhale 2 puffs daily 4 g 5 09/01/19 25 Active ipratropium-albut Rakesh (DUO-NEB) 0.5-2.5 mg/3 mL nebulizer solutionIndicatio ns:Chronic Obstructive Pulmonary Disease with Bronchospasms Take 3 mL by nebulization every 6 (six) hours 360 mL 3 10/11/[address] (PROTONIX) 40 mg EC tablet Take 1 tablet (40 mg total) by mouth 2 (two) times a day Active benzonatate (TESSALON) 100 mg capsuleIndication s:Cough Take 1 capsule (100 mg total) by mouth 3 (three) times a day as needed for cough 60 capsule 02/09/20 25 Active omeprazole (PriLOSEC) 40 mg capsule Take 1 capsule (40 mg total) by mouth 2 (two) times a day 12/05/19 21 025 Discontin ued(Patie nt Reported) Active Problems Problem Noted Date Diagnosed Date [...] Cigarette nicotine dependence without complicati on 03/29/2024 Encounters Date Type Department Care Team Description 02/13/2025 Telephone [facility] Building 2 Radiation Oncology [address] [place] [id number] Raine Delgado RN 02/08/2025 11:00 AM CDT Office Visit [facility] Office Building 2 Radiation Oncology [address] [place] [id number] Flory Escobar, PA NSCLC of right lung (HCC) (Primary Dx); Personal history of radiation therapy; Cough, unspecified type 01/26/2025 1:22 PM CDT - 01/26/2025 11:59 PM CDT Hospital Encounter [facility] Medical Office Building [address] [place] [id number] NSCLC of right lung (HCC) Discharge Disposition: Discharge to home or self care 01/19/2025 2:45 PM CDT Office Visit [facility] Pulmonology [address] [facility] [address] [place] [phone] Moe Rubio MD Simple chronic bronchitis (HCC) (Primary Dx); NSCLC of right lung (HCC); Cigarette nicotine dependence without complication; Personal history of radiation therapy; Benign paroxysmal positional vertigo, unspecified laterality; Weight loss from Last 3 Months Surgical History Surgery Date Site/Laterality Comments APPENDECTOMY CHOLECYSTECTOMY SPINE SURGERY 2020 and 2023 lumbar CAROTID ENDARTERECTOMY Left 2023 ABDOMINOPLASTY 1989' COLONOSCOPY about 2020 TONSILLECTOMY BACK SURGERY COSMETIC SURGERY VASCULAR SURGERY Medical History Medical History Date Comments Lung disease COPD Nicotine dependence History of TB (tuberculosis) 199 0's; had treatment Wears glasses Hypertension GERD (gastroesophageal reflux disease) HLD (hyperlipidemia) Arthritis Anxiety Wears partial dentures upper den tures Missing teeth, acquired few mis sing teeth on the bottom Carotid artery stenosis Lung mass right upper lobe Chronic obstructive pulmonary disease 08/29/2024 Social History Tobacco Use Types Packs/Day Years Used Date Smoking Tobacco: Every Day Cigarettes 1 49.7 Started: 1975 Passive Smoke Exposure: Current Smokeless Tobacco: Never Tobacco Cessation:Ready to Q uit: Not Asked; Counseling Given: Not Answered Comments:Smoked 2 ppd at heaviest smoking Last smoked 10-24 evening AUDIT-C Answer Date Recorded Q1: How often do you have a drink containing alcohol? Never 05/11/2024 Q2: How many drinks containi ng alcohol do you have on a typical day when you are drinking? Patient does not drink Q3: How often do you have si x or more drinks on one occasion? Never 05/11/2024 Hunger Vital Sign Answer Date Recorded Within the past 12 months, y ou worried that your food would run out before you got the money to buy more. Never true 05/11/20 Within the past 12 months, t he food you bought just didn't last and you didn't have money to get more. Never true 05/11/2024 Personal Safety Answer Date Recorded Have you ever been in or are you currently in a harmful physical or emotional relationship or is someone making you feel afraid or unsafe? Denies 05/11/2024 Comments Unknown Sex and Gender Information Value Date Recorded Sex Assigned at Not on file Legal Sex Female 1:45 PM CDT Gender Identity Not on file Sexual Orientation Not on file Obstetrics History Last Filed Vital Signs Vital Sign Reading Time Taken Comments Blood Pressure 159/77 02/08/2025 10:44 AM CDT pt stated she has not taking blood presure medication yet this morning. Pulse 100 02/08/2025 10:44 AM CDT Temperature 36.9 C (98.4 F) 08/29/2024 10:25 AM CDT Respiratory Rate 18 01/19/2025 2:20 PM CDT Oxygen Saturation 96% 02/08/2025 10: 44 AM CDT Inhaled Oxygen Concentration - - Weight 70.8 kg (156 lb) 02/08/2025 10:4 4 AM CDT Height 154.9 cm (5' 1) 01/19/2025 2:20 PM CDT Body Mass Index 29.48 01/19/2025 2:20 PM CDT Plan of Treatment Health Maintenance Due Date Last Done Comments Breast Cancer Screening-Mammogram 1962 Cervical Cancer Screening 1962 Colon Cancer Screening-Colonoscopy 1962 Depression Screening 1962 Hepatitis C Screening 1962 DTaP/Tdap/Td Vaccine (1 - Tdap) 1973 Hepatitis B Screening 01/07/1980 Regular Well Visit/Exam 18-64 01/07/1980 Pneumococcal vaccine <65 (1 of 2 - PCV) 1981 Zoster Vaccine (1 of 2) 1981 Covid-19 Vaccine (6 - Pfizer risk season) 2025 04/12/2024, 03/17/2022, 05/03/2021, Additional history exists Influenza Vaccine (#1) 2025 , 03/17/2022, 05/03/2021, Additional history exists Medical Devices Implanted Type Area Systems Applications Programming Lead Device Identifier Shelf Expiration Date Model / Serial / Lot Hardware/Cadave r Bone N/A: Spine Lumbar Procedures Procedure Name Priority Date/Time Associated Diagnosis Comments CT CHEST WO CONTRAST Schedule Routine, Read Routine (OP Routine) 01/26/2025 1:33 PM CDT NSCLC of right lung (HCC) from Last 3 Months Results * CT Chest WO Contrast (01/26/2025 1:33 PM CDT) Anatomical Region Laterality Modality Body N/A Computed Tomogra phy 02/11/2025 3:49 AM CDT Narrative 02/11/2025 4:03 AM CDT EXAM DESCRIPTION: CT CHEST WO CONTRAST REASON FOR STUDY: Non-small cell lung cancer (NSCLC), non-metastatic, assess treatment response 3 month lung cancer f/u. No complaints. TECHNIQUE: CT scan of the chest performed without intravenous contrast using helical scanning technique. Reconstructed coronal and sagittal MPR images reviewed. All images stored on PACS. Automated mA/kV exposure control was utilized as a dose optimization technique for this examination, performed in strict accordance with principles of ALARA. COMPARISON: Comparison is made to multiple previous studies, the most recent chest CT dated November 02, 2024 and most recent PET-CT dated July 05, 2024. REFERENCE: Per ACR white paper recommendations, unless otherwise specified no follow-up imaging is recommended for incidental renal and adrenal lesions per consensus recommendations based on imaging criteria. Further lab evaluation could be pursued based on clinical findings. FINDINGS: The sensitivity for detection of solid visceral lesions is diminished without the use of intravenous contrast. NECK BASE: Unremarkable on this non-contrast CT. HARDWARE/LINES/TUBES: None. LYMPH NODES: No axillary, mediastinal or hilar lymphadenopathy is seen by CT size criteria on this non-contrast CT. There are calcified nodes. MEDIASTINUM/DB: No masses seen. There is mild atherosclerosis of the aorta. There is severe coronary artery calcification. Heart size is normal. There is no significant pericardial effusion. PLEURA: No effusion. No pneumothorax. LUNGS: There is a thick-walled, up to 9 mm in thickness, spiculated cavitary lesion along the superior aspect of the longitudinal fissure, measuring 2.4 x 1.3 cm, not significantly changed as compared to previous CT but decreased in size and wall thickness as compared to prior PET-CT. There are multiple additional stable peripheral parenchymal and pleural-based nodules (series 3, images 41, 42, 52, 53, 60, 69, 74, and 75), the largest in the left lower lobe measuring 7 mm. There are no new nodules identified. The central airways are normal. MUSCULOSKELETAL: There is degenerative change throughout the thoracic spine. There are old bilateral rib fractures. CHEST WALL/BREAST: Unremarkable. UPPER ABDOMEN: There are sequelae of cholecystectomy. The remaining visualized upper abdominal structures are unremarkable. OTHER: No other significant abnormality. IMPRESSION: 1. Stable thick-walled, spiculated cavitary lesion along the superior aspect of the longitudinal fissure, measuring 2.4 x 1.3 cm, not significantly changed as compared to previous CT but decreased in size and wall thickness as compared to prior PET-CT, consistent with treated malignancy. 2. Multiple additional stable peripheral parenchymal and pleural-based nodules, the largest in the left lower lobe measuring 7 mm. No new nodules identified. 3. Atherosclerosis. 4. Degenerative change of the thoracic spine. 5. Old bilateral rib fractures. 6. Sequelae of cholecystectomy. THIS IS AN ELECTRONICALLY VERIFIED FINAL REPORT 02/11/2025 4:03 AM - Electronically signed by Amie Coley M.D. SN: Report ID: [id number] Reading Location: [place] [address] Procedure Note Amie Coley MD - 02/11/2025 EXAM DESCRIPTION: CT CHEST WO CONTRAST REASON FOR STUDY: Non-small cell lung cancer (NSCLC), non-metastatic,assess treatment response 3 month lung cancer f/u. No complaints. TECHNIQUE: CT scan of the chest performed without intravenous contrastusing helical scanning technique. Reconstructed coronal and sagittal MPR images reviewed. All images stored on PACS. Automated mA/kV exposure controlwas utilized as a dose optimization technique for this examination, performedin strict accordance with principles of ALARA. COMPARISON: Comparison is made to multiple previous studies, the mostrecent chest CT dated November 02, 2024 and most recent PET-CT dated July 05, 2024. REFERENCE: Per ACR white paper recommendations, unless otherwise specifiedno follow-up imaging is recommended for incidental renal and adrenal lesionsper consensus recommendations based on imaging criteria. Further labevaluation could be pursued based on clinical findings. FINDINGS: The sensitivity for detection of solid visceral lesions is diminished without the use of intravenous contrast. NECK BASE: Unremarkable on this non-contrast CT. HARDWARE/LINES/TUBES: None. LYMPH NODES: No axillary, mediastinal or hilar lymphadenopathy is seen byCT size criteria on this non-contrast CT. There are calcified nodes. MEDIASTINUM/DB: No masses seen. There is mild atherosclerosis of the aorta. There is severe coronary artery calcification. Heart size is normal. There is no significant pericardial effusion. PLEURA: No effusion. No pneumothorax. LUNGS: There is a thick-walled, up to 9 mm in thickness, spiculatedcavitary lesion along the superior aspect of the longitudinal fissure, measuring2.4 x 1.3 cm, not significantly changed as compared to previous CT but decreasedin size and wall thickness as compared to prior PET-CT. There are multiple additional stable peripheral parenchymal and pleural-based nodules (series3, images 41, 42, 52, 53, 60, 69, 74, and 75), the largest in the left lowerlobe measuring 7 mm. There are no new nodules identified. The centralairways are normal. MUSCULOSKELETAL: There is degenerative change throughout the thoracicspine. There are old bilateral rib fractures. CHEST WALL/BREAST: Unremarkable. UPPER ABDOMEN: There are sequelae of cholecystectomy. The remaining visualized upper abdominal structures are unremarkable. OTHER: No other significant abnormality. IMPRESSION: 1. Stable thick-walled, spiculated cavitary lesion along the superioraspect of the longitudinal fissure, measuring 2.4 x 1.3 cm, not significantlychanged as compared to previous CT but decreased in size and wall thickness as compared to prior PET-CT, consistent with treated malignancy. 2. Multiple additional stable peripheral parenchymal and pleural-based nodules, the largest in the left lower lobe measuring 7 mm. No new nodules identified. 3. Atherosclerosis. 4. Degenerative change of the thoracic spine. 5. Old bilateral rib fractures. 6. Sequelae of cholecystectomy. THIS IS AN ELECTRONICALLY VERIFIED FINAL REPORT 02/11/2025 4:03 AM - Electronically signed by Amie Coley M.D. SN: Report ID: [id number] Reading Location: [place] [address] PROCEDURES Final Res ult from Last 3 Months Insurance [facility] Care Teams Dry End Tester Relationship Specialty Start Date End Date Tai Torres MD [address] [facility] [address] [place] [address] PCP - General Family Medicine 03/25/23 Joseph Friend MD [address] [facility] [address] [place], [place] [id number] Referring Physician Occupational Health Rn 03/30/24 [place] [address] [place] [address] [address] [place], [place] [phone] Consulting Physician Pulmonary Disease 05/25/24 Keagan Kelsey MD [address] [facility] [address] [place] [address] Radiation Oncologist Radiation Oncology 05/25/24
--- OUTSIDE RECORDS SUMMARY | 2025-02-28 13:42 | XMS_ITS | Clinical Summary ---
Author Organization [facility] Address [address] [place] [address] Phone Care Team Providers Care Medical Administrative Specialist Name Role Phone Unavailable Primary Care Provider Unavailabl e Medications No known medications Social History Tobacco Use Types Packs/Day Years Used Date Smoking Tobacco: Never Assessed Feeling Safe Answer Date Recorded Are you in a relationship wi th someone who hurts you emotionally and/or physically? No 04/28/2023 Comments Unknown Sex and Gender Information Value Date Recorded Sex Assigned at Not on file Legal Sex Female 9:19 AM CABLE MACHINE OPERATOR Gender Identity Female 07/22/2023 6:48 PM CABLE MACHINE OPERATOR Sexual Orientation Straight 07/22/2023 6: 48 PM CABLE MACHINE OPERATOR Last Filed Vital Signs Vital Sign Reading Time Taken Comments Blood Pressure 157/73 04/28/2023 2:15 PM CABLE MACHINE OPERATOR Pulse 74 04/28/2023 2:15 PM CABLE MACHINE OPERATOR Temperature 36.5 C (97.7 F) 04/28/2023 2:24 PM CABLE MACHINE OPERATOR Respiratory Rate 18 04/28/2023 9:59 AM CABLE MACHINE OPERATOR Oxygen Saturation 94% 04/28/2023 2:15 PM CABLE MACHINE OPERATOR Inhaled Oxygen Concentration - - Weight 57.6 kg (127 lb) 04/28/2023 10:02 AM CABLE MACHINE OPERATOR Height 157.5 cm (5' 2) 04/28/2023 10:02 AM CABLE MACHINE OPERATOR Body Mass Index 23.23 04/28/2023 10:02 AM CABLE MACHINE OPERATOR Plan of Treatment Health Maintenance Due Date Last Done Comments DTAP/TDAP/TD VACCINES (1 - Tdap) 1981 HPV/Cotest (21-29) 1983 CERVICAL CANCER SCREENING 01/07/1992 HPV/Cotest (30-65) 01/07/1992 PAP SMEAR 01/07/1992 BREAST CANCER SCREENING 2002 COLORECTAL SCREENING 2007 Colorectal Cancer Screening 2007 FIT-DNA Q 3 years 2007 FIT/FOBT Q 1 year 2007 Flex Sig/CT Colonography Q 5 years 2007 ZOSTER VACCINE (1 of 2) 01/07/2012 INFLUENZA VACCINE (#1) 2025 03/20/2020, 2018 RSV VACCINE (60+ or ) (1 - 1-dose 75+ series) 2037 Insurance [facility]
== END 2025-02-28 13:34 | disposition home or self-care (01) ==
LOC: ANHFOHIMG 13:35
PROVIDERS: Visit Provider Obstetrics & Gynecology Gynecology
DX: Z12.31 Encounter for screening mammogram for malignant neoplasm of breast (principal)
CPT/HCPCS: 77063; 77067